=== PATIENT | female | born 1955 ===

== ENCOUNTER 2018-07-14 05:50 | Inpatient (IN) | payer MEDICAID ==
[2018-07-14 06:00] VITALS: BMI 27.4
--- NOTE | 2018-07-14 06:13 | ED PDOC ---
HPI: Altered Mental Status Time Seen by Provider: 07/14/18 05:59 Chief Complaint (Nursing): Weakness/Neurological Deficit Chief Complaint (Provider): Weakness/Neurological Deficit History Per: Family () History/Exam Limitations: Clinical Condition Onset/Duration Of Symptoms: Other (Prior to arrival) Description Of Symptoms: Unresponsive (to verbal or physical stimuli) Usual Baseline: Unknown Exacerbating Factor(s): Unknown Additional Complaint(s): 62 years old female brought in by EMS for evaluation after found her moaning rhythmically, not responsive to verbal or physical stimuli with no purposeful movement. reports he last saw patient last night and states she was fine until this morning. Patient is on medications of Baclofen, Omeprazole, Losartan/HCTZ, Gabapentin , Cyclobenzaprine, Hydrocod/APAP. PMD: None provided Past Medical History Reviewed: Historical Data, Nursing Documentation, Vital Signs Vital Signs: Last Vital Signs Temp Pulse 83 07/14/18 06:01 Resp 22 07/14/18 06:01 BP 195/105 H 07/14/18 06:01 Pulse Ox 100 07/14/18 06:01 - Medical History PMH: HTN - Family History Family History: States: Unknown Family Hx - Home Medications Home Medications: Ambulatory Orders Medication Instructions Recorded Baclofen [Lioresal] 10 mg PO BID 07/14/18 Cyclobenzaprine [Cyclobenzaprine 10 mg PO TID 07/14/18 HCl] Gabapentin [Neurontin] 300 mg PO TID 07/14/18 Hydrocodone/Acetaminophen [[place] 1 each PO BID 07/14/18 5-325 Tablet] Losartan/Hydrochlorothiazide 1 tab PO DAILY 07/14/18 [Hyzaar 25 mg-100 mg] Omeprazole Magnesium [Prilosec Otc] 40 mg PO DAILY 07/14/18 - Allergies Allergies/Adverse Reactions: Allergies Allergy/AdvReac Type Severity Reaction Status Date / Time No Known Allergies Allergy Verified 07/14/18 06:00 Review of Systems Review Of Systems: ROS cannot be obtained secondary to pt's inabilty to answer questions. Physical Exam - Reviewed Nursing Documentation Reviewed: Yes Vital Signs Reviewed: Yes - Physical Exam Eye Exam: Positive for: PERRL (Right pupils less reactive than left) Respiratory: Positive for: Other (Unable to auscultate breath sounds due to moaning.) Gastrointestinal/Abdominal: Positive for: Soft. Negative for: Tenderness (apparent on palpation) Extremity: Positive for: Other (Rigid extremities upper and lower) Neurological/Psych: Positive for: Other (Unclear baseline due to surgery) - Laboratory Results Result Diagrams: 07/14/18 06:11 07/14/18 06:11 - ECG O2 Sat by Pulse Oximetry: 100 (RA) Pulse Ox Interpretation: Normal - Critical Care Total Time (In Min): 120 Documented Critical Care: Time excludes all time spent performint seperately billable procedures Medical Decision Making Medical Decision Making: MDM: Altered mental status. Rule out stroke out of window unable to obtain NIH scale vs. drug overdose vs. other cause of AMS with underline hypertension. Time: 05 Code stroke activated. [address] Findings: There is normal configuration of sella turcica. There are no intra or extra- axial collections. There is no mass effect or midline shift. There is no evidence of hematoma formation. No hydrocephalus is present. The ventricles are symmetrical. No abnormal calcifications are present. There is diffuse age-appropriate cerebellar and cerebral atrophy with proportionally dilated ventricles and cortical sulci. There are bilateral periventricular and subcortical white matter hypolucencies compatible with mild chronic microvascular disease. Otherwise, no significant focal abnormalities are seen either in the posterior fossa or supratentorial compartment. Mild chronic mucosal inflammatory changes of the ethmoid air cells. IMPRESSION: 1. Age-appropriate cerebellar and cerebral atrophy. 2. Mild chronic microvascular disease. 3. No evidence of acute intracranial pathology. Time: 0620 Hypertension improved without intervention. Hold on hypertension treatment. NIH scale to be performed. 0623 Based on ABG, patient is in respiratory alkalosis. [address] Crawley, neurologist expansion envelope maker hand, who recommends 1000 mg of Depacon for seizure. 0753 Labs reviewed, patient with elevated LFT, normal ammonia level Discussed case with Dr. Fernandez, patient to be admitted. He is requesting ICU consult. At this time, patient with stable airway, gag reflex intact. Discussed plan with family, who is agreeable. [address] Norwood, core maker expansion envelope maker hand and accepts patient for ICU. Scribe Attestation: Documented by Karis Maher, acting as a scribe for Jaylyn Mills MD. Provider Scribe Attestation: All medical record entries made by the Scribe were at my direction and personally dictated by me. I have reviewed the chart and agree that the record accurately reflects my personal performance of the history, physical exam, medical decision making, and the department course for this patient. I have also personally directed, reviewed, and agree with the discharge instructions and disposition. Disposition - Clinical Impression Clinical Impression: Seizure, Altered mental status - Patient ED Disposition Is Patient to be Admitted: Yes - Disposition Disposition Time: 07:55 Condition: CRITICAL
[2018-07-14 06:16] LABS: ABG ALLEN TEST YES; ARTERIAL BLOOD GAS HCO3 30.6 mmol/L (21-28); ARTERIAL BLOOD GAS O2 SAT 99.9 % (95-98); ARTERIAL BLOOD GAS PCO2 34 mm/Hg (35-45); ARTERIAL BLOOD GAS PH 7.55 (7.35-7.45); ARTERIAL BLOOD GAS PO2 89 mm/Hg (80-100); ARTERIAL BLOOD GAS TCO2 30.7 mmol/L (22-28)
[2018-07-14 06:24] LABS: BASO # 0.1 K/uL (0.0-0.2); BASO % 0.8 % (0.0-2.0); EOS # 0.2 K/uL (0.0-0.7); EOS % 1.9 % (0.0-4.0); HEMOGLOBIN 14.8 g/dL (12.0-16.0); LYMPH # 4.1 K/uL (1.0-4.3); LYMPH % 47.5 % (20.0-40.0); MEAN CELL VOLUME 91.9 fl (81.0-99.0); MEAN CORPUSCULAR HEMOGLOBIN 31.3 pg (27.0-31.0); MEAN CORPUSCULAR HGB CONC 34.1 g/dL (33.0-37.0); MEAN PLATELET VOLUME 9.2 fl (7.2-11.7); MONO # 1.1 K/uL (0.0-0.8); MONO % 12.6 % (0.0-10.0); NEUT # 3.2 K/uL (1.8-7.0); NEUT % 37.2 % (50.0-75.0); NRBC % 0.1 % (0.0-0.0); RBC 4.71 Mil/uL (3.80-5.20); RED CELL DISTRIBUTION WIDTH 15.2 % (11.5-14.5); WHITE BLOOD COUNT 8.7 K/uL (4.8-10.8)
[2018-07-14] MEDS ORDERED: Valproate 1,000 MG in Sodium Chloride 0.9% 100 ML IVPB STA (06:24)
[2018-07-14 06:28] LABS: INR 0.9; PROTHROMBIN TIME 10.7 Seconds (9.8-13.1)
[2018-07-14 06:31] LABS: PARTIAL THROMBOPLASTIN TIME 38.7 Seconds (25.6-37.1)
[2018-07-14 06:32] LABS: ACETAMINOPHEN < 10.0 ug/ml (10.0-30.0); SALICYLATE < 1.0 mg/dl
[2018-07-14 06:35] LABS: ALB/GLOB RATIO 1.4 (1.0-2.1); ALBUMIN 4.5 g/dL (3.5-5.0); ALT/SGPT 128 U/L (9-52); AST/SGOT 45 U/L (14-36); BLOOD UREA NITROGEN 17 mg/dl (7-17); CALCIUM 10.1 mg/dL (8.4-10.2); GFR NON-AFRICAN AMERICAN > 60; LIPASE 284 U/L (23-300)
[2018-07-14 06:45] LABS: B-TYPE NATRIURETIC PEPTIDE 153 pg/ml (0-900)
[2018-07-14 08:12] LABS: SQUAMOUS EPITHIAL < 1 /hpf (0-5); URINE BILIRUBIN NEGATIVE (NEGATIVE); URINE BLOOD NEGATIVE (NEGATIVE); URINE CLARITY SLIGHTY-CLOUDY (Clear); URINE COLOR YELLOW (YELLOW); URINE GLUCOSE (UA) NEG (NEGATIVE); URINE LEUKOCYTE ESTERASE NEG Leu/uL (Negative); URINE PROTEIN NEGATIVE (NEGATIVE); URINE UROBILINOGEN 0.2-1.0 mg/dL (0.2-1.0)
--- NOTE | 2018-07-14 08:26 | CT ---
Date of service: 07/14/2018 PROCEDURE: CT HEAD WITHOUT CONTRAST. HISTORY: AMS COMPARISON: None available. TECHNIQUE: Axial computed tomography images were obtained through the head/brain without intravenous contrast. Radiation dose: Total exam DLP = 893.35 mGy-cm. This CT exam was performed using one or more of the following dose reduction techniques: Automated exposure control, adjustment of the mA and/or kV according to patient size, and/or use of iterative reconstruction technique. FINDINGS: HEMORRHAGE: No parenchymal subarachnoid hemorrhage. BRAIN: Minor chronic periventricular white matter ischemic changes present.. Additionally, there may also be a few tiny chronic bilateral basal nuclei lacunar type infarcts Mild generalized volume Minor vascular calcifications both carotid siphons. VENTRICLES: No obstructive hydrocephalus. CALVARIUM: Unremarkable. PARANASAL SINUSES: Minimal mucosal thickening seen within a few ethmoid air cells MASTOID AIR CELLS: Unremarkable as visualized. No inflammatory changes. OTHER FINDINGS: Changes of cataract surgery. IMPRESSION: No acute intracranial hemorrhage. Minor chronic periventricular white matter ischemic changes present.. Additionally, there may also be a few tiny chronic bilateral basal nuclei lacunar type infarcts Mild generalized volume
[2018-07-14 08:28] LABS: OPIATES, UR NEGATIVE (NEGATIVE)
[2018-07-14 08:34] LABS: BARBITURATES, UR NEGATIVE (NEGATIVE); BENZODIAZEPINES, UR POSITIVE (NEGATIVE); PHENCYCLIDINE, UR NEGATIVE (NEGATIVE)
[2018-07-14] MEDS ORDERED: EnalaprilAT 1.25 mg/ml Inj IVP SCH (10:30)
[2018-07-14] MEDS ORDERED: Potassium Ch 20mEq in D5-1/2NS 1,000 ML IV SCH (11:15)
[2018-07-14] MEDS ORDERED: Nicardipine HCl 40 MG/200 ML 40 MG/200 ML SOL IV SCH (11:15)
--- NOTE | 2018-07-14 12:39 | PN ---
DATE: 07/14/2018 LOCATION: ICU bed 434. TIME SPENT: 45 minutes. The patient is seen, evaluated at the bedside. Discussed with family members at bedside. Events in the ER noted and discussed with the ER. A 62-year-old female with history significant for anxiety, depression, status post injury to back from a fall from past years ago, on Xanax, clonazepam, doxepin, baclofen, omeprazole, losartan with hydrochlorothiazide, gabapentin, cyclobenzaprine and hydrocodone. The patient moved recently from [place] to her son's house in [place]. The patient was reportedly at her baseline, able to communicate with family and able to walk around. This morning, the patient was noted to be moaning by son and not responding appropriately. She was brought to the emergency room. In ER, the patient's vital signs showed temperature of 98.7, heart rate 83 regular, respiratory rate 22, blood pressure 195/105, pulse oximetry 100%. Examination was significant for pupils equal, round, reactive to light. Right pupil less reactive than left, limited movements of the upper and lower extremities. CT of head obtained, showed mild chronic mucosal inflammatory change ethmoid air cells, no significant focal abnormalities in the posterior fossa or supratentorial compartment, bilateral periventricular and subcortical white matter hyperlucency compatible with chronic microvascular disease. The patient's consult was obtained from Neurology, recommended to give Keppra given suspected postictal state. The patient is subsequently admitted to ICU for further evaluation. On further review noted to have the patient's missing hydrocodone from her container that was filled on 06/20/2018. Also reportedly taking Xanax, clonazepam and doxepin which are also not seen in the medications at the bedside. PAST MEDICAL HISTORY: Significant for hypertension. ALLERGIES: NONE DOCUMENTED. FAMILY HISTORY: Noncontributory. SOCIAL HISTORY: Nonsmoker, non-ETOH, no recreational drug use. PHYSICAL EXAMINATION: GENERAL: A middle-aged female, looks older than her stated age, alert and awake. Eyes are open, able to answer questions to her family members but not clear due to lack of dentition. VITAL SIGNS: Temperature 97.6, heart rate 54, blood pressure 149/88 and 210/88, saturation 100% on room air, respiratory rate 19, thoracoabdominal. HEAD, EYES, EARS, NOSE AND THROAT: Pupils 2 to 3 mm, reactive. Conjunctivae pink. Sclerae are white. NECK: Supple. Trachea central. CHEST: Bilateral breath sounds diminished in intensity, clear to auscultation anteriorly and laterally. HEART: Rhythm regular. S1, S2, normal intensity. No S3 or gallop. No audible murmur. ABDOMEN: Bowel sounds are present. Soft. Liver and spleen not palpable. Bladder not distended. EXTREMITIES: No clubbing, cyanosis or edema. NEUROLOGIC: Alert, awake, eyes open. Limited movements on upper and lower extremities. Plantarflexion. No cranial nerve deficit. Deep tendon reflexes 2+ bilaterally. MEDICATIONS: Her current medications include status post valproate 1 g IV, diltiazem 25 mg and enalapril 2.5 mg IV every 12 hours. LABORATORY DATA: WBC 8.7, hemoglobin 14.8, hematocrit 43.3, platelet count of 339. PT 10.7, INR 0.9, PTT 38.7. ABG, pH of 7.5, pCO2 of 34, pO2 of 89, saturation 99.9 on FIO2 of 21%, consistent with mild metabolic alkalosis. SMA-7: Sodium 141, potassium 3.4, chloride 101, CO2 of 31, blood urea nitrogen 17, creatinine 0.9, random glucose 116, calcium 10.1, phosphorus 2.4, magnesium 2.3, total bilirubin 0.5, AST 45, ALT 128, alkaline phosphatase 291, ammonia less than 9. Troponin is less than 0.012. ProBNP 153. Total protein 7.8, albumin 4.5, lipase 284. Urinalysis negative. Urine toxic screen, Tylenol level less than 1, acetaminophen less than 10. Urine positive for benzodiazepine. IMPRESSION: Neurologic: Altered mental status, toxic encephalopathy, probably due to incidental overdose of oxycodone and/or other medications including Xanax and clonazepam. Possible seizure with postictal state, seen by Neurology consult, status post dose of Keppra, aspirin 81 mg daily. Followup MRI of brain. Pulmonary: Mild metabolic encephalopathy, saturating well over 94%. No distress noted. Adequate respiratory effort. Cardiac: Hypertension, history of hypertension in the past. We will continue with enalapril IV. If not controlled, initiate nicardipine drip. Maintain systolic pressure between 140 to 160. Gastrointestinal: Abnormal LFT, likely toxic, rule out other hepatic etiology like hepatitis B, C and/or due to the side effect from the medications. Renal: No acute issues noted. Endocrinology: Blood sugar 116. Continue IV hydration with D5 half normal with potassium supplement at 75 ml/hour. Infectious Disease No acute issues noted. Keep head of bed 30 degrees up, close monitoring of intake and output. Continue DVT prophylaxis with Lovenox 40 mg subcu daily. Stevan Norwood MD
--- NOTE | 2018-07-14 14:49 | RAD ---
Date of service: 07/14/2018 HISTORY: Possible admission COMPARISON: No prior. TECHNIQUE: 1 view obtained. FINDINGS: LUNGS: No active pulmonary disease. PLEURA: No significant pleural effusion identified, no pneumothorax apparent. CARDIOVASCULAR: Questionable minor aortic atherosclerotic calcification present. Heart size is borderline enlarged.. No pulmonary vascular congestion. OSSEOUS STRUCTURES: No significant abnormalities. VISUALIZED UPPER ABDOMEN: Normal. OTHER FINDINGS: None. IMPRESSION: No active disease.
[2018-07-14] MEDS: Thiamine 100 mg/ml Inj IM SCH (16:08)
[2018-07-14] MEDS ORDERED: Dextrose 5%/0.45% NS 1,000 ML IV SCH (19:00)
--- NOTE | 2018-07-14 19:09 | CP.PCM.HP ---
History of Present Illness - History of Present Illness History of Present Illness: 62 yo female with history of chronic pain and HTN bought in by son to ER after she was found moaning by her son and not responsive to verbal or physical stimuli. Son said she was fine last night. Present on Admission - Present on Admission Any Indicators Present on Admission: No History of DVT/PE: No History of Uncontrolled Diabetes: No Urinary Catheter: No Decubitus Ulcer Present: No Review of Systems - Review of Systems All systems: reviewed and no additional remarkable complaints except (aside from those mentioned above, 12 point system review were negative by me) Past Patient History - Tetanus Immunizations Tetanus Immunization: Unknown - Past Medical History & Family History Past Medical History?: Yes - Past Social History Smoking Status: Former Smoker Chewing Tobacco Use: No Cigar Use: No Alcohol: None Drugs: Denies Home Situation {Lives}: Other (with son and son's girlfriend) - CARDIAC Hx Cardiac Disorders: Yes - PULMONARY Hx Respiratory Disorders: Yes - NEUROLOGICAL Hx Neurological Disorder: No - HEENT Hx HEENT Problems: No - RENAL Hx Chronic Kidney Disease: No - ENDOCRINE/METABOLIC Hx Endocrine Disorders: Yes - HEMATOLOGICAL/ONCOLOGICAL Hx Blood Disorders: No - INTEGUMENTARY Hx Dermatological Problems: No - MUSCULOSKELETAL/RHEUMATOLOGICAL Hx Falls: Yes - GASTROINTESTINAL Hx Gastrointestinal Disorders: No - GENITOURINARY/GYNECOLOGICAL Hx Genitourinary Disorders: No - PSYCHIATRIC Hx Substance Use: No - SURGICAL HISTORY Hx Surgeries: Yes Hx Gastric Bypass Surgery: Yes Other/Comment: Tummy tuck - ANESTHESIA Hx Anesthesia Reactions: No Hx Malignant Hyperthermia: No Meds Allergies/Adverse Reactions: Allergies Allergy/AdvReac Type Severity Reaction Status Date / Time No Known Allergies Allergy Verified 07/14/18 06:00 Physical Exam - Constitutional Appears: No Acute Distress - Head Exam Head Exam: ATRAUMATIC - Eye Exam Eye Exam: EOMI, PERRL. absent: Scleral icterus - ENT Exam ENT Exam: Mucous Membranes Moist - Neck Exam Neck exam: Negative for: Meningismus - Respiratory Exam Respiratory Exam: absent: Rales, Rhonchi, Wheezes, Respiratory Distress - Cardiovascular Exam Cardiovascular Exam: Bradycardia - GI/Abdominal Exam GI & Abdominal Exam: Soft. absent: Tenderness - Rectal Exam Rectal Exam: Deferred - Extremities Exam Extremities exam: Negative for: pedal edema - Neurological Exam Neurological exam: Alert (able to follow command and answered correctly but slurred), Motor Sensory Deficit (unable to lift all limbs) - Psychiatric Exam Psychiatric exam: Normal Affect - Skin Skin Exam: Dry, Intact Results - Vital Signs Recent Vital Signs: Last Vital Signs Temp 98.2 F 07/14/18 16:00 Pulse 51 L 07/14/18 18:00 Resp 20 07/14/18 18:00 BP 141/76 07/14/18 18:00 Pulse Ox 100 07/14/18 18:00 - Labs Result Diagrams: 07/14/18 06:11 07/14/18 06:11 Labs: Laboratory Results - last 24 hr 07/14/18 07/14/18 07/14/18 05:57 06:11 06:11 WBC RBC Hgb Hct MCV MCH MCHC RDW Plt Count MPV Neut % (Auto) Lymph % (Auto) Mclean % (Auto) Eos % (Auto) Baso % (Auto) Neut # (Auto) Lymph # (Auto) Mclean # (Auto) Eos # (Auto) Baso # (Auto) PT INR APTT pCO2 pO2 HCO3 ABG pH ABG Total CO2 ABG O2 Saturation ABG Base Excess Jama Test ABG Potassium A-a O2 Difference Glucose Lactate FiO2 Sodium 141 Potassium 3.4 L Chloride 101 Carbon Dioxide 31 H Anion Gap 12 BUN 17 Creatinine 0.9 Est GFR ( Amer) > 60 Est GFR (Non-Af Amer) > 60 POC Glucose (mg/dL) 116 H Random Glucose 111 H Calcium 10.1 Phosphorus 2.4 L Magnesium 2.3 Total Bilirubin 0.5 AST 45 H ALT 128 H Alkaline Phosphatase 291 H Ammonia Troponin I < 0.0120 NT-Pro-B Natriuret Pep 153 Total Protein 7.8 Albumin 4.5 Globulin 3.3 Albumin/Globulin Ratio 1.4 Lipase 284 TSH 3rd Generation Arterial Blood Potassium Urine Color Urine Clarity Urine pH Ur Specific [place] Urine Protein Urine Glucose (UA) Urine Ketones Urine Blood Urine Nitrate Urine Bilirubin Urine Urobilinogen Ur Leukocyte Esterase Urine RBC (Auto) Urine Microscopic WBC Ur Squamous Epith Cells Salicylates < 1.0 Urine Opiates Screen Urine Methadone Screen Acetaminophen < 10.0 L Ur Barbiturates Screen Ur Phencyclidine Scrn Ur Amphetamines Screen U Benzodiazepines Scrn U Oth Cocaine Metabols U Cannabinoids Screen Alcohol, Quantitative < 10 Blood Type Blood Type Confirm Antibody Screen BBK History Checked 07/14/18 07/14/1807/14/19 06:11 06:11 06:11 WBC 8.7 RBC 4.71 Hgb 14.8 Hct 43.3 MCV 91.9 MCH 31.3 H MCHC 34.1 RDW 15.2 H Plt Count 339 MPV 9.2 Neut % (Auto) 37.2 L Lymph % (Auto) 47.5 H Mclean % (Auto) 12.6 H Eos % (Auto) 1.9 Baso % (Auto) 0.8 Neut # (Auto) 3.2 Lymph # (Auto) 4.1 Mclean # (Auto) 1.1 H Eos # (Auto) 0.2 Baso # (Auto) 0.1 PT 10.7 INR 0.9 APTT 38.7 H pCO2 pO2 HCO3 ABG pH ABG Total CO2 ABG O2 Saturation ABG Base Excess Jama Test ABG Potassium A-a O2 Difference Glucose Lactate FiO2 Sodium Potassium Chloride Carbon Dioxide Anion Gap BUN Creatinine Est GFR ( Amer) Est GFR (Non-Af Amer) POC Glucose (mg/dL) Random Glucose Calcium Phosphorus Magnesium Total Bilirubin AST ALT Alkaline Phosphatase Ammonia Troponin I NT-Pro-B Natriuret Pep Total Protein Albumin Globulin Albumin/Globulin Ratio Lipase TSH 3rd Generation Arterial Blood Potassium Urine Color Urine Clarity Urine pH Ur Specific [place] Urine Protein Urine Glucose (UA) Urine Ketones Urine Blood Urine Nitrate Urine Bilirubin Urine Urobilinogen Ur Leukocyte Esterase Urine RBC (Auto) Urine Microscopic WBC Ur Squamous Epith Cells Salicylates Urine Opiates Screen Urine Methadone Screen Acetaminophen Ur Barbiturates Screen Ur Phencyclidine Scrn Ur Amphetamines Screen U Benzodiazepines Scrn U Oth Cocaine Metabols U Cannabinoids Screen Alcohol, Quantitative Blood Type O POSITIVE Blood Type Confirm Antibody Screen Negative BBK History Checked No verified bt 07/14/18 07/14/18 07/14/18 06:13 06:56 07:40 WBC RBC Hgb Hct MCV MCH MCHC RDW Plt Count MPV Neut % (Auto) Lymph % (Auto) Mclean % (Auto) Eos % (Auto) Baso % (Auto) Neut # (Auto) Lymph # (Auto) Mclean # (Auto) Eos # (Auto) Baso # (Auto) PT INR APTT pCO2 34 L pO2 89 HCO3 30.6 H ABG pH 7.55 H ABG Total CO2 30.7 H ABG O2 Saturation 99.9 H ABG Base Excess 7.3 H Jama Test Yes ABG Potassium 3.1 L A-a O2 Difference 18.0 Glucose 118 H Lactate 1.1 FiO2 21.0 Sodium 140.0 Potassium Chloride 104.0 Carbon Dioxide Anion Gap BUN Creatinine Est GFR ( Amer) Est GFR (Non-Af Amer) POC Glucose (mg/dL) Random Glucose Calcium Phosphorus Magnesium Total Bilirubin AST ALT Alkaline Phosphatase Ammonia < 9 L Troponin I NT-Pro-B Natriuret Pep Total Protein Albumin Globulin Albumin/Globulin Ratio Lipase TSH 3rd Generation Arterial Blood Potassium 3.1 L Urine Color Urine Clarity Urine pH Ur Specific [place] Urine Protein Urine Glucose (UA) Urine Ketones Urine Blood Urine Nitrate Urine Bilirubin Urine Urobilinogen Ur Leukocyte Esterase Urine RBC (Auto) Urine Microscopic WBC Ur Squamous Epith Cells Salicylates Urine Opiates Screen Negative Urine Methadone Screen Negative Acetaminophen Ur Barbiturates Screen Negative Ur Phencyclidine Scrn Negative Ur Amphetamines Screen Negative U Benzodiazepines Scrn Positive U Oth Cocaine Metabols Negative U Cannabinoids Screen Negative Alcohol, Quantitative Blood Type Blood Type Confirm Antibody Screen BBK History Checked 07/14/18 07/14/18 07/14/18 07:40 11:10 12:17 WBC RBC Hgb Hct MCV MCH MCHC RDW Plt Count MPV Neut % (Auto) Lymph % (Auto) Mclean % (Auto) Eos % (Auto) Baso % (Auto) Neut # (Auto) Lymph # (Auto) Mclean # (Auto) Eos # (Auto) Baso # (Auto) PT INR APTT pCO2 pO2 HCO3 ABG pH ABG Total CO2 ABG O2 Saturation ABG Base Excess Jama Test ABG Potassium A-a O2 Difference Glucose Lactate FiO2 Sodium Potassium Chloride Carbon Dioxide Anion Gap BUN Creatinine Est GFR ( Amer) Est GFR (Non-Af Amer) POC Glucose (mg/dL) Random Glucose Calcium Phosphorus Magnesium Total Bilirubin AST ALT Alkaline Phosphatase Ammonia Troponin I NT-Pro-B Natriuret Pep Total Protein Albumin Globulin Albumin/Globulin Ratio Lipase TSH 3rd Generation 0.31 L Arterial Blood Potassium Urine Color Yellow Urine Clarity Slighty-cloudy Urine pH 7.0 Ur Specific [place] 1.008 Urine Protein Negative Urine Glucose (UA) Neg Urine Ketones Negative Urine Blood Negative Urine Nitrate Negative Urine Bilirubin Negative Urine Urobilinogen 0.2-1.0 Ur Leukocyte Esterase Neg Urine RBC (Auto) 1 Urine Microscopic WBC < 1 Ur Squamous Epith Cells < 1 Salicylates Urine Opiates Screen Urine Methadone Screen Acetaminophen Ur Barbiturates Screen Ur Phencyclidine Scrn Ur Amphetamines Screen U Benzodiazepines Scrn U Oth Cocaine Metabols U Cannabinoids Screen Alcohol, Quantitative Blood Type Blood Type Confirm O POSITIVE Antibody Screen BBK History Checked Assessment & Plan - Assessment and Plan (Free Text) Assessment: 62 yo female with history of chronic pain and HTN bought in by son to ER after she was found moaning by her son and not responsive to verbal or physical stimuli. Son said she was fine last night. 1. AMS R/O CVA R/O Metabolic Encephalopathy or Drug Intoxication neuro consult with Dr Crawley MRI of the head maintain NPO as patient failed swallow evaluation patient mentation improved and able to answer correctly but with slurred speech 2. HTN patient received Cardizem in the ER and was given IV Vasotec followed with Cardene drip all above medications stopped with patient SBP going down to 90s and HR in the 50s continue monitoring BP 3. Chronic Pain will hold pain medication for the meantime consider painter ski edge 4. DVT prophylaxis venodyne boots while in bed
[2018-07-14] MEDS: Potassium Ch 20mEq in D5-1/2NS 1,000 ML IV SCH (21:10)
[2018-07-15] MEDS ORDERED: Sodium Chloride 0.9% 1,000 ML IV SCH (00:15)
[2018-07-15] MEDS ORDERED: Naloxone 0.4 mg/ml Inj (Adult) IVP STA (00:21)
[2018-07-15] MEDS ORDERED: Flumazenil 0.1 mg/ml Inj (5ml) IVP ONE (00:33)
[2018-07-15 05:17] LABS: BASO % 0.4 % (0.0-2.0); EOS # 0.2 K/uL (0.0-0.7); HEMOGLOBIN 13.4 g/dL (12.0-16.0); LYMPH # 3.5 K/uL (1.0-4.3); LYMPH % 46.7 % (20.0-40.0); MEAN CELL VOLUME 93.6 fl (81.0-99.0); MEAN CORPUSCULAR HEMOGLOBIN 31.2 pg (27.0-31.0); MEAN CORPUSCULAR HGB CONC 33.4 g/dL (33.0-37.0); MONO # 0.9 K/uL (0.0-0.8); MONO % 11.8 % (0.0-10.0); NEUT # 2.9 K/uL (1.8-7.0); NEUT % 39.1 % (50.0-75.0); RBC 4.29 Mil/uL (3.80-5.20); RED CELL DISTRIBUTION WIDTH 15.4 % (11.5-14.5); WHITE BLOOD COUNT 7.4 K/uL (4.8-10.8)
[2018-07-15 05:31] LABS: ALB/GLOB RATIO 1.3 (1.0-2.1); ALBUMIN 3.5 g/dL (3.5-5.0); ALT/SGPT 85 U/L (9-52); AST/SGOT 40 U/L (14-36); BLOOD UREA NITROGEN 14 mg/dl (7-17); CALCIUM 8.7 mg/dL (8.4-10.2); GFR NON-AFRICAN AMERICAN > 60
[2018-07-15] MEDS: Potassium Ch 20mEq in D5-1/2NS 1,000 ML IV SCH (06:06)
[2018-07-15] MEDS: Thiamine 100 mg/ml Inj IM SCH (09:14)
--- NOTE | 2018-07-15 12:33 | CT ---
Date of service: 07/15/2018 PROCEDURE: CT HEAD WITHOUT CONTRAST. HISTORY: Rule out stroke COMPARISON: Comparison made CT scan of the brain dated 07/14/2018. TECHNIQUE: Axial computed tomography images were obtained through the head/brain without intravenous contrast. Radiation dose: Total exam DLP = 972.59 mGy-cm. This CT exam was performed using one or more of the following dose reduction techniques: Automated exposure control, adjustment of the mA and/or kV according to patient size, and/or use of iterative reconstruction technique. FINDINGS: HEMORRHAGE: No acute parenchymal, subarachnoid or extra-axial hemorrhage. BRAIN: Suspect minimal chronic periventricular white matter ischemic changes. There may also be a few tiny scattered chronic bilateral basal nuclei lacunar type infarcts. Note that possibility of a small acute infarct cannot be excluded on this exam. Mild generalized volume loss Minor vascular calcifications both carotid siphons and vertebral arteries. VENTRICLES: No obstructive hydrocephalus CALVARIUM: Calvarium intact. PARANASAL SINUSES: Unremarkable as visualized. No significant inflammatory changes. MASTOID AIR CELLS: Unremarkable as visualized. No inflammatory changes. OTHER FINDINGS: Changes of bilateral cataract surgery again noted. IMPRESSION: There are no acute intracranial hemorrhages. Suspect minimal chronic periventricular white matter ischemic changes. Note that the possibility of a small acute infarct not excluded. Mild generalized volume loss.
--- NOTE | 2018-07-15 13:07 | CP.PCM.PN ---
Subjective - Date & Time of Evaluation Date of Evaluation: 07/15/18 Time of Evaluation: 10:00 - Subjective Subjective: Patient seen and examined. Admitted in a slurred speech that she felt fine although still with weakness on all limbs. Objective - Vital Signs/Intake and Output Vital Signs (last 24 hours): Temp Pulse Resp BP Pulse Ox 98.6 F 55 L 14 175/85 H 99 07/15/18 12:00 07/15/18 12:42 07/15/18 12:00 07/15/18 12:42 07/15/18 12:00 Intake and Output: 07/15/18 07/15/18 06:59 18:59 Intake Total 2104 1000 Output Total 450 700 Balance 1654 300 - Medications Medications: Current Medications Amlodipine Besylate (Norvasc) 5 mg PO DAILY [facility] Last Admin: 07/15/18 12:42 Dose: 5 mg Aspirin (Aspirin Chewable) 81 mg PO DAILY [facility] Last Admin: 07/15/18 10:04 Dose: 81 mg Sodium Chloride (Sodium Chloride 0.9%) 1,000 mls @ 1,000 mls/hr IV .Q1H [facility] Stop: 07/16/18 00:04 Last Admin: 07/15/18 00:22 Dose: 1,000 mls/hr Pantoprazole Sodium (Protonix Inj) 40 mg IVP DAILY [facility] Last Admin: 07/15/18 09:14 Dose: 40 mg Thiamine HCl (Vitamin B1 Inj) 100 mg IM DAILY [facility] Last Admin: 07/15/18 09:14 Dose: 100 mg - Labs Labs: 07/15/18 04:37 07/15/18 04:37 PT 10.7 Seconds (9.8-13.1) 07/14/18 06:11 INR 0.9 07/14/18 06:11 APTT 38.7 Seconds (25.6-37.1) H 07/14/18 06:11 - Constitutional Appears: No Acute Distress - Head Exam Head Exam: ATRAUMATIC - Eye Exam Eye Exam: absent: Scleral icterus - ENT Exam ENT Exam: Mucous Membranes Moist - Neck Exam Neck Exam: absent: Lymphadenopathy - Respiratory Exam Respiratory Exam: absent: Rales, Rhonchi, Wheezes, Respiratory Distress - Cardiovascular Exam Cardiovascular Exam: Bradycardia - GI/Abdominal Exam GI & Abdominal Exam: Soft. absent: Tenderness - Rectal Exam Rectal Exam: Deferred - Neurological Exam Neurological Exam: Alert (verbally responsive although with slurring) - Psychiatric Exam Psychiatric exam: Normal Affect - Skin Skin Exam: Dry, Intact Assessment and Plan - Assessment and Plan (Free Text) Assessment: 62 yo female with history of chronic pain and HTN bought in by son to ER after she was found moaning by her son and not responsive to verbal or physical stimuli. Son said she was fine last night. 1. AMS verbally responsive with generalized weakness passed swallow evaluation MRI of the head in am rpt CT scan of Head: can not exclude small infarct 2. HTN BP uncontrolled increase Amlodipine to 10mg PO daily 3. Chronic Pain back pain bearable without medication 4. DVT prophylaxis venodyne boots while in bed
--- NOTE | 2018-07-15 23:12 | PN ---
DATE: 07/15/2018 LOCATION: The patient in ICU, bed 435. TIME SPENT: 35 minutes. The patient is seen, evaluated at the bedside. Discussed with family members at bedside. SUBJECTIVE: A 62-year-old female, history significant for anxiety, depression, status post injury to back from a fall in the past, on Xanax, clonazepam, doxepin, baclofen, omeprazole, losartan with hydrochlorothiazide, gabapentin, cyclobenzaprine and hydrocodone, admitted after being found mumbling at home and with change in the mental status. Initial CT head showed subacute lacunar infarct, seen by Neurology, on recommended aspirin. Overnight given and Narcan for bradycardia. This morning, alert and awake, follows commands appropriate, respiratory distress noted. Affect, mood is flat but able to comprehend, seen by speech and swallow evaluation, able to swallow without signs or symptoms of aspiration, started on finely chopped diet with thin liquid. PHYSICAL EXAMINATION: VITAL SIGNS: Temperature 98.9, heart rate 55 to 62, blood pressure of 146/70 to 155/80. Oxygen saturation 100% on room air, respiratory rate 12. Intake 2381, output 1650, positive balance 731. Weight 168 pounds. HEAD, EYES, EARS, NOSE AND THROAT: Pupils are reactive. Conjunctivae pink. Sclerae are white. NECK: Supple. Trachea is central. CHEST: Bilateral breath sounds, clear to auscultation. HEART: Rhythm regular. S1, S2 normal intensity. No S3, S4 gallop. No audible murmur. ABDOMEN: Bowel sounds are present. Soft. Liver and spleen not palpable. Bladder not distended. NEUROLOGIC: Alert and awake, oriented to name, place and time. No cranial nerve deficit except subtle left questionable facial droop. Motor examination unremarkable. Sensory examination remarkable. Plantarflexor. Deep tendon reflex 2+ bilaterally. MEDICATIONS: Aspirin 81 mg daily, Protonix 40 IV daily, sodium chloride at 100 mL per hour, thiamine 100 mg IM daily. LABORATORY DATA: WBC 7.4, hemoglobin 13.4, hematocrit 40.2, platelet count of 268, neutrophils 39.1, lymphocytes 46.7, monocytes 11.8. PT 10.7, INR 0.9, PTT 38.7. SMA-7: Sodium 141, potassium 3.6, chloride 107, CO2 of 28, blood urea nitrogen 40, creatinine of 0.6, random glucose 104, calcium 8.7, total bilirubin 0.6, AST 85, alkaline phosphatase 180, total protein 6.2, albumin 3.5, triglycerides 117, cholesterol 155, LDL 93, HDL 33, T4 of 9.21, TSH 0.31. Microbiology, none reported. Repeat CT head from this morning pending. CT on admission showed minor chronic periventricular white matter ischemic changes plus a few tiny chronic bilateral basal nuclei lacunar-type infarct. IMPRESSION: Neurologic: Admitted with altered mental status, possibly toxic encephalopathy, incidental overdose of oxycodone suspected as tablets missing in the container, also due to other medications including Xanax and clonazepam. Possible seizure with postictal state, no further seizure noted, seen by Neurology consult, status post dose of Keppra, follow up Neurology whether to continue Keppra or not. Continue aspirin [address] scan to be done this morning and MRI as recommended by Neurology later on. Pulmonary: Mild metabolic alkalosis saturating well over 94%. No distress noted. Adequate respiratory effort. Cardiac: Hypertension, on losartan. As the patient is able to swallow, we will resume losartan with hydrochlorothiazide. Gastrointestinal: Abnormal LFT, numbers are trending down. Follow up serology titers. Renal No acute issues. Endocrinology: Blood sugar 116. Continue IV hydration. Follow TSH and free T4 level. Infectious Disease: No acute issues. Continue DVT prophylaxis. Stevan Norwood MD
[2018-07-16 05:32] LABS: HEMOGLOBIN 13.9 g/dL (12.0-16.0); MEAN CELL VOLUME 92.2 fl (81.0-99.0); MEAN CORPUSCULAR HEMOGLOBIN 30.5 pg (27.0-31.0); MEAN CORPUSCULAR HGB CONC 33.1 g/dL (33.0-37.0); RBC 4.55 Mil/uL (3.80-5.20); RED CELL DISTRIBUTION WIDTH 14.9 % (11.5-14.5); WHITE BLOOD COUNT 7.5 K/uL (4.8-10.8)
[2018-07-16 05:35] LABS: ALB/GLOB RATIO 1.3 (1.0-2.1); ALBUMIN 3.9 g/dL (3.5-5.0); ALT/SGPT 79 U/L (9-52); AST/SGOT 33 U/L (14-36); BLOOD UREA NITROGEN 7 mg/dl (7-17); CALCIUM 9.3 mg/dL (8.4-10.2); GFR NON-AFRICAN AMERICAN > 60
[2018-07-16] MEDS ORDERED: Potassium Chloride 20 mEq ER Tab PO ONE (06:53)
[2018-07-16] MEDS ORDERED: Potassium Chloride 20 mEq 100 ML IVPB SCH (08:00)
[2018-07-16 08:22] LABS: HEPATITIS B SURFACE AG Negative (NEGATIVE)
[2018-07-16 08:39] LABS: HEPATITIS C ANTIBODY NEGATIVE (NEGATIVE)
--- NOTE | 2018-07-16 08:49 | CP.PCM.PN ---
<GeovanyBianca - Last Filed: 07/16/18 11:23> Subjective - Date & Time of Evaluation Date of Evaluation: 07/16/18 Time of Evaluation: 08:49 - Subjective Subjective: Patient seen and examined at bedside. Reports significant improve. Oriented to person, place and time. Reports she does not remember what happened prior to her arrival to [facility]. Reports that she does not want her daughter in law to know anything about her and her medical treatment in the hospital. Only her Son is allowed to know. Denies chest pain, shortness of breath, nausea, vomiting, abdominal pain. Objective - Vital Signs/Intake and Output Vital Signs (last 24 hours): Temp Pulse Resp BP Pulse Ox 98.8 F 65 18 150/79 97 07/16/18 08:02 07/16/18 08:02 07/16/18 08:02 07/16/18 08:02 07/16/18 08:02 - Medications Medications: Current Medications Amlodipine Besylate (Norvasc) 10 mg PO DAILY [facility] Aspirin (Aspirin Chewable) 81 mg PO DAILY [facility] Last Admin: 07/15/18 10:04 Dose: 81 mg Atorvastatin Calcium (Lipitor) 40 mg PO DAILY [facility] Baclofen (Lioresal) 10 mg PO DAILY [facility] Last Admin: 07/15/18 16:49 Dose: 10 mg Enoxaparin Sodium (Lovenox) 40 mg SC DAILY [facility]; Protocol Gabapentin (Neurontin) 100 mg PO TID [facility] Last Admin: 07/15/18 16:50 Dose: 100 mg Ketorolac Tromethamine (Toradol) 15 mg IVP ONCE ONE Stop: 07/16/18 09:01 Lidocaine (Lidoderm) 1 ea TD DAILY [facility] Pantoprazole Sodium (Protonix Inj) 40 mg IVP DAILY [facility] Last Admin: 07/15/18 09:14 Dose: 40 mg Thiamine HCl (Vitamin B1 Inj) 100 mg IM DAILY [facility] Last Admin: 07/15/18 09:14 Dose: 100 mg - Labs Labs: 07/16/18 04:35 07/16/18 04:35 PT 10.7 Seconds (9.8-13.1) 07/14/18 06:11 INR 0.9 07/14/18 06:11 APTT 38.7 Seconds (25.6-37.1) H 07/14/18 06:11 - Constitutional Appears: Non-toxic, No Acute Distress, Older Than Stated Age, Chronically Ill - Eye Exam Eye Exam: Normal appearance - ENT Exam ENT Exam: Mucous Membranes Moist - Respiratory Exam Respiratory Exam: Clear to Ausculation Bilateral, NORMAL BREATHING PATTERN. absent: Accessory Muscle Use, Chest Wall Tenderness, Decreased Breath Sounds, Prolonged Expiratory Phase, Rales, Rhonchi, Wheezes, Respiratory Distress, Stridor - Cardiovascular Exam Cardiovascular Exam: +S1, +S2 - GI/Abdominal Exam GI & Abdominal Exam: Soft, Normal Bowel Sounds. absent: Distended, Firm, Guarding, Rigid, Tenderness, Rebound - Extremities Exam Extremities Exam: Full ROM, Normal Capillary Refill, Normal Inspection. absent: Calf Tenderness, Joint Swelling, Pedal Edema, Tenderness - Neurological Exam Neurological Exam: Alert, Awake, Oriented x3 - Psychiatric Exam Psychiatric exam: Normal Affect, Normal Mood - Skin Skin Exam: Dry, Intact, Normal Color, Warm Assessment and Plan - Assessment and Plan (Free Text) Assessment: 62 yo female with history of chronic pain and HTN bought in by son to ER after she was found moaning by her son and not responsive to verbal or physical stimuli. Currently, alert and oriented x3. No slurred speech (resolved as compared to when she first came in). Plan: 1. AMS verbally responsive Alert and oriented to person, place and time. with generalized weakness passed swallow evaluation MRI of the head - pending read rpt CT scan of Head: can not exclude small infarct Start Statin 2. HTN BP uncontrolled c/w Amlodipine to 10mg PO daily 3. Chronic Pain back pain bearable without medication -C/W current pain medications prn 4. DVT prophylaxis venodyne boots while in bed Loveadrián <Shweta Murcia - Last Filed: 07/16/18 16:50> Objective - Vital Signs/Intake and Output Vital Signs (last 24 hours): Temp Pulse Resp BP Pulse Ox 98.3 F 78 18 184/92 H 98 07/16/18 12:19 07/16/18 13:25 07/16/18 12:19 07/16/18 12:19 07/16/18 13:25 - Medications Medications: Current Medications Amlodipine Besylate (Norvasc) 10 mg PO DAILY [facility] Last Admin: 07/16/18 11:13 Dose: 10 mg Aspirin (Aspirin Chewable) 81 mg PO DAILY [facility] Last Admin: 07/16/18 11:11 Dose: 81 mg Atorvastatin Calcium (Lipitor) 40 mg PO DAILY [facility] Last Admin: 07/16/18 11:10 Dose: 40 mg Baclofen (Lioresal) 10 mg PO DAILY [facility] Last Admin: 07/16/18 11:11 Dose: 10 mg Enoxaparin Sodium (Lovenox) 40 mg SC DAILY [facility]; Protocol Last Admin: 07/16/18 11:12 Dose: 40 mg Gabapentin (Neurontin) 100 mg PO TID [facility] Last Admin: 07/16/18 14:26 Dose: Not Given Lidocaine (Lidoderm) 1 ea TD DAILY [facility] Last Admin: 07/16/18 11:09 Dose: 1 ea Pantoprazole Sodium (Protonix Inj) 40 mg IVP DAILY [facility] Last Admin: 07/16/18 11:14 Dose: 40 mg Thiamine HCl (Vitamin B1 Inj) 100 mg IM DAILY [facility] Last Admin: 07/16/18 11:15 Dose: 100 mg - Labs Labs: 07/16/18 04:35 07/16/18 04:35 PT 10.7 Seconds (9.8-13.1) 07/14/18 06:11 INR 0.9 07/14/18 06:11 APTT 38.7 Seconds (25.6-37.1) H 07/14/18 06:11 Attending/Attestation - Attestation I have personally seen and examined this patient.: Yes I have fully participated in the care of the patient.: Yes I have reviewed all pertinent clinical information, including history, physical exam and plan: Yes Notes (Text): AMS likely Toxic Metabolic Encephalopathy Acute CVA ruled out Depression/Anxiety/Adjustment Disorder Chronic Low Back Pain HTN - Pt now alert, oriented - MRI of Brain : no acute infarct - EEG pending - PT consulted- rec TCU - cont ASA, statin - cont Gabapentin, Baclofen and Lidoderm patch -Psych consulted- rec Family therapy , no meds for now
--- NOTE | 2018-07-16 09:29 | CP.PCM.CON ---
History of Present Illness - History of Present Illness History of Present Illness: Neurology consult dictated. IN brief, Miss Jones was found by to be rhythmically moaning and groaning with altered mental status. She was brought in as a code stroke and admitted to ICU but did not have any focal deficits that would warrant TPA. ON my exam today, she appears aphasic with decreased ability to follow commands. I will order MRI brain without contrast, and order aspirin. Thank you Dr. Crawley Neurology Past Patient History - Tetanus Immunizations Tetanus Immunization: Unknown - Past Medical History & Family History Past Medical History?: Yes - Past Social History Smoking Status: Former Smoker Chewing Tobacco Use: No Cigar Use: No Alcohol: None Drugs: Denies Home Situation {Lives}: Other (with son and son's girlfriend) - CARDIAC Hx Hypertension: Yes - PULMONARY Hx Respiratory Disorders: Yes - NEUROLOGICAL Hx Neurological Disorder: No - HEENT Hx HEENT Problems: No - RENAL Hx Chronic Kidney Disease: No - ENDOCRINE/METABOLIC Hx Endocrine Disorders: Yes - HEMATOLOGICAL/ONCOLOGICAL Hx Blood Disorders: No - INTEGUMENTARY Hx Dermatological Problems: No - MUSCULOSKELETAL/RHEUMATOLOGICAL Hx Falls: Yes - GASTROINTESTINAL Hx Gastrointestinal Disorders: No - GENITOURINARY/GYNECOLOGICAL Hx Genitourinary Disorders: No - PSYCHIATRIC Hx Substance Use: No - SURGICAL HISTORY Hx Surgeries: Yes Hx Gastric Bypass Surgery: Yes Other/Comment: Tummy tuck - ANESTHESIA Hx Anesthesia Reactions: No Hx Malignant Hyperthermia: No Meds Allergies/Adverse Reactions: Allergies Allergy/AdvReac Type Severity Reaction Status Date / Time No Known Allergies Allergy Verified 07/14/18 06:00 - Medications Medications: Current Medications Amlodipine Besylate (Norvasc) 10 mg PO DAILY [facility] Aspirin (Aspirin Chewable) 81 mg PO DAILY [facility] Last Admin: 07/15/18 10:04 Dose: 81 mg Atorvastatin Calcium (Lipitor) 40 mg PO DAILY [facility] Baclofen (Lioresal) 10 mg PO DAILY [facility] Last Admin: 07/15/18 16:49 Dose: 10 mg Enoxaparin Sodium (Lovenox) 40 mg SC DAILY [facility]; Protocol Gabapentin (Neurontin) 100 mg PO TID [facility] Last Admin: 07/15/18 16:50 Dose: 100 mg Lidocaine (Lidoderm) 1 ea TD DAILY [facility] Pantoprazole Sodium (Protonix Inj) 40 mg IVP DAILY [facility] Last Admin: 07/15/18 09:14 Dose: 40 mg Thiamine HCl (Vitamin B1 Inj) 100 mg IM DAILY [facility] Last Admin: 07/15/18 09:14 Dose: 100 mg Results - Vital Signs Recent Vital Signs: Last Vital Signs Temp 98.8 F 07/16/18 08:02 Pulse 65 07/16/18 08:02 Resp 18 07/16/18 08:02 BP 150/79 07/16/18 08:02 Pulse Ox 97 07/16/18 08:02 - Labs Result Diagrams: 07/16/18 04:35 07/16/18 04:35 Labs: Laboratory Results - last 24 hr 07/14/18 07/16/18 07/16/18 12:17 04:35 04:35 WBC 7.5 RBC 4.55 Hgb 13.9 Hct 41.9 MCV 92.2 MCH 30.5 MCHC 33.1 RDW 14.9 H Plt Count 308 Sodium 140 Potassium 3.3 L Chloride 102 Carbon Dioxide 29 Anion Gap 12 BUN 7 Creatinine 0.7 Est GFR ( Amer) > 60 Est GFR (Non-Af Amer) > 60 Random Glucose 95 Calcium 9.3 Total Bilirubin 0.6 AST 33 ALT 79 H Alkaline Phosphatase 199 H Total Protein 6.9 Albumin 3.9 Globulin 2.9 Albumin/Globulin Ratio 1.3 Hep Bs Antigen Negative Hepatitis C Antibody Negative
[2018-07-16] MEDS: Lidocaine 5% Patch TD SCH (11:09)
[2018-07-16] MEDS: Enoxaparin 40 mg Syringe SC SCH (11:12)
[2018-07-16] MEDS: Thiamine 100 mg/ml Inj IM SCH (11:15)
--- NOTE | 2018-07-16 11:38 | CARD ---
APPROVED REPORT Date of service: 07/14/2018 EKG Measurement Heart [id number] <Conclusion> Sinus bradycardia Otherwise normal ECG
--- NOTE | 2018-07-16 11:45 | MRI ---
Date of service: 07/16/2018 PROCEDURE: MRI BRAIN WITHOUT CONTRAST HISTORY: r/o CVA COMPARISON: None available. TECHNIQUE: Multiplanar, multisequence MR images of the brain were obtained without intravenous contrast enhancement. FINDINGS: HEMORRHAGE: None DWI: No evidence of an acute or early subacute infarction. BRAIN PARENCHYMA: Good corticomedullary differentiation is seen. Reiterated diffuse cerebral atrophy and chronic microangiopathy. No suspicious extra-axial fluid collection is identified and the midline brain anatomy appears grossly nonfocal as imaged. No mass effect identified. VENTRICLES: Unremarkable. No hydrocephalus. CRANIUM: Unremarkable. ORBITS: Grossly unremarkable. PARANASAL SINUSES/MASTOIDS: Clear VASCULAR SYSTEM: Skull base flow voids intact. OTHER FINDINGS: None. IMPRESSION: No evidence of an acute or subacute brain infarction. No mass effect or other suspicious signal change identified throughout the brain. Limited age-related neuro degenerative changes are reiterated, appearing age appropriate.
--- NOTE | 2018-07-16 12:35 | CP.PCM.PN ---
Subjective - Date & Time of Evaluation Date of Evaluation: 07/16/18 Time of Evaluation: 12:33 - Subjective Subjective: Neuro Follow Up Note: Mrs. Jones was evaluated this afternoon at bedside. She states that she is feeling better today and offers no new complaints. She is still pending an EEG to be completed. She verbalizes concerns about recently moving here from [place] and has been running out of her home medications. Per pt she suffers from anxiety and panic attacks, which she states has gotten worse due to the recent move. ROS is otherwise unremarkable today. Objective - Vital Signs/Intake and Output Vital Signs (last 24 hours): Temp Pulse Resp BP Pulse Ox 98.3 F 60 18 184/92 H 99 07/16/18 12:19 07/16/18 12:19 07/16/18 12:19 07/16/18 12:19 07/16/18 12:19 - Medications Medications: Current Medications Amlodipine Besylate (Norvasc) 10 mg PO DAILY [facility] Last Admin: 07/16/18 11:13 Dose: 10 mg Aspirin (Aspirin Chewable) 81 mg PO DAILY [facility] Last Admin: 07/16/18 11:11 Dose: 81 mg Atorvastatin Calcium (Lipitor) 40 mg PO DAILY [facility] Last Admin: 07/16/18 11:10 Dose: 40 mg Baclofen (Lioresal) 10 mg PO DAILY [facility] Last Admin: 07/16/18 11:11 Dose: 10 mg Enoxaparin Sodium (Lovenox) 40 mg SC DAILY [facility]; Protocol Last Admin: 07/16/18 11:12 Dose: 40 mg Gabapentin (Neurontin) 100 mg PO TID [facility] Last Admin: 07/16/18 11:12 Dose: 100 mg Lidocaine (Lidoderm) 1 ea TD DAILY [facility] Last Admin: 07/16/18 11:09 Dose: 1 ea Pantoprazole Sodium (Protonix Inj) 40 mg IVP DAILY [facility] Last Admin: 07/16/18 11:14 Dose: 40 mg Thiamine HCl (Vitamin B1 Inj) 100 mg IM DAILY [facility] Last Admin: 07/16/18 11:15 Dose: 100 mg - Labs Labs: 07/16/18 04:35 07/16/18 04:35 PT 10.7 Seconds (9.8-13.1) 07/14/18 06:11 INR 0.9 07/14/18 06:11 APTT 38.7 Seconds (25.6-37.1) H 07/14/18 06:11 - Constitutional Appears: Well, Non-toxic, No Acute Distress - Head Exam Head Exam: ATRAUMATIC, NORMAL INSPECTION, NORMOCEPHALIC - Eye Exam Eye Exam: EOMI, Normal appearance, PERRL. absent: Nystagmus Pupil Exam: NORMAL ACCOMODATION, PERRL - ENT Exam ENT Exam: Mucous Membranes Moist - Neck Exam Neck Exam: Full ROM, Normal Inspection - Respiratory Exam Respiratory Exam: NORMAL BREATHING PATTERN - Extremities Exam Extremities Exam: Full ROM Additional comments: has generalized weakness - Neurological Exam Neurological Exam: Alert, Awake, CN II-XII Intact, Oriented x3, Reflexes Normal Neuro motor strength exam: Left Upper Extremity: 4, Right Upper Extremity: 4, Left Lower Extremity: 4, Right Lower Extremity: 4 Additional comments: Speech clear,fluid Awake, alert; can name and recall. FROM to extremities with some generalized weakness throughout No tremors or abnormal movements noted - Psychiatric Exam Psychiatric exam: Normal Affect, Normal Mood - Skin Skin Exam: Normal Color Assessment and Plan (1) Altered mental status Assessment & Plan: Imaging reviewed: -MRI Brain (07/16/18): No evidence of an acute or subacute brain infarction. No mass effect or other suspicious signal change identified throughout the brain. Limited age-related neuro degenerative changes are reiterated, appearing age appropriate. -CT Head (repeat, 07/15/18): There are no acute intracranial hemorrhages. Suspect minimal chronic periventricular white matter ischemic changes. Note that the possibility of a small acute infarct not excluded. Mild generalized volume loss. -CT Head (07/14/18): No acute intracranial hemorrhage. Minor chronic perivent ricular white matter ischemic changes present.. Additionally, there may also be a few tiny chronic bilateral basal nuclei lacunar type infarcts. Mild generalized volume. -EEG ordered, pending to r/o seizure---will f/u with results. -Continue supportive care and treatment of underlying issues. -Recommend psych to evaluate for c/o anxiety and frequent panic attacks. -Notify neuro team of any acute changes in pt's condition. Jillian Dc, DNP, INCIDENT RESPONSE CONSULTANT d/w Dr. Pacheco Status: Acute
--- NOTE | 2018-07-16 15:22 | CP.PCM.CON ---
History of Present Illness - History of Present Illness History of Present Illness: late note for [id number] psychiatry consulted possible changes in mood, pt was admitted to [facility] from [facility] after pt was brought in by ems, ems was called by patient's family after pt was reportedly found on floor in her home. reportedly pt was moaning, making sounds. pt son (at bedside per pt authorization via nodding up and down. pt currently is experiencing expressive aphasia. is able to follow commands. son reports that pt was recently moved up to this area as where pt was reportedly living in [place] became "to noisy neighbors were banging on ceiling", etc.. reportedly this was becoming stressful for pt.. pt denies previous mental health treatment via nodding left to right. via nodding pt. expressed worry (up/down motion). tearful at times. pt denies desire to harm self or other others. pt reports right side/hand is dominant hand pt was offered paper/pencil with clip board-pt able to grasp pen in palm, appears to not have fine motor grasp to write with pen. reviewed with pt family staff may find chart with various faces to signify needs so that pt might be able to communicate. Review of Systems - Psychiatric Psychiatric: Anxiety, Difficulty Concentrating Past Patient History - Tetanus Immunizations Tetanus Immunization: Unknown - Past Medical History & Family History Past Medical History?: Yes - Past Social History Smoking Status: Former Smoker Chewing Tobacco Use: No Cigar Use: No Alcohol: None Drugs: Denies Home Situation {Lives}: Other (with son and son's girlfriend) - CARDIAC Hx Hypertension: Yes - PULMONARY Hx Respiratory Disorders: Yes - NEUROLOGICAL Hx Neurological Disorder: No - HEENT Hx HEENT Problems: No - RENAL Hx Chronic Kidney Disease: No - ENDOCRINE/METABOLIC Hx Endocrine Disorders: Yes - HEMATOLOGICAL/ONCOLOGICAL Hx Blood Disorders: No - INTEGUMENTARY Hx Dermatological Problems: No - MUSCULOSKELETAL/RHEUMATOLOGICAL Hx Falls: Yes - GASTROINTESTINAL Hx Gastrointestinal Disorders: No - GENITOURINARY/GYNECOLOGICAL Hx Genitourinary Disorders: No - PSYCHIATRIC Hx Substance Use: No - SURGICAL HISTORY Hx Surgeries: Yes Hx Gastric Bypass Surgery: Yes Other/Comment: Tummy tuck - ANESTHESIA Hx Anesthesia Reactions: No Hx Malignant Hyperthermia: No Meds Allergies/Adverse Reactions: Allergies Allergy/AdvReac Type Severity Reaction Status Date / Time No Known Allergies Allergy Verified 07/14/18 06:00 - Medications Medications: Current Medications Amlodipine Besylate (Norvasc) 10 mg PO DAILY [facility] Last Admin: 07/16/18 11:13 Dose: 10 mg Aspirin (Aspirin Chewable) 81 mg PO DAILY [facility] Last Admin: 07/16/18 11:11 Dose: 81 mg Atorvastatin Calcium (Lipitor) 40 mg PO DAILY [facility] Last Admin: 07/16/18 11:10 Dose: 40 mg Baclofen (Lioresal) 10 mg PO DAILY [facility] Last Admin: 07/16/18 11:11 Dose: 10 mg Enoxaparin Sodium (Lovenox) 40 mg SC DAILY [facility]; Protocol Last Admin: 07/16/18 11:12 Dose: 40 mg Gabapentin (Neurontin) 100 mg PO TID [facility] Last Admin: 07/16/18 14:26 Dose: Not Given Lidocaine (Lidoderm) 1 ea TD DAILY [facility] Last Admin: 07/16/18 11:09 Dose: 1 ea Pantoprazole Sodium (Protonix Inj) 40 mg IVP DAILY [facility] Last Admin: 07/16/18 11:14 Dose: 40 mg Thiamine HCl (Vitamin B1 Inj) 100 mg IM DAILY [facility] Last Admin: 07/16/18 11:15 Dose: 100 mg Physical Exam - Neurological Exam Additional comments: expressive aphasia uses nodding up and down for yes and left to right for no. appears left side might be a little weaker as compaired to right side. pt follows simple commands when spoken to in Hebrew, alert x person, place, month. Results - Vital Signs Recent Vital Signs: Last Vital Signs Temp 98.3 F 07/16/18 12:19 Pulse 60 07/16/18 12:19 Resp 18 07/16/18 12:19 BP 184/92 H 07/16/18 12:19 Pulse Ox 99 07/16/18 12:19 - Labs Result Diagrams: 07/16/18 04:35 07/16/18 04:35 Labs: Laboratory Results - last 24 hr 07/14/18 07/14/18 07/16/18 11:10 12:17 04:35 WBC 7.5 RBC 4.55 Hgb 13.9 Hct 41.9 MCV 92.2 MCH 30.5 MCHC 33.1 RDW 14.9 H Plt Count 308 Sodium Potassium Chloride Carbon Dioxide Anion Gap BUN Creatinine Est GFR ( Amer) Est GFR (Non-Af Amer) Random Glucose Calcium Total Bilirubin AST ALT Alkaline Phosphatase Total Protein Albumin Globulin Albumin/Globulin Ratio Hep Bs Antigen Negative Hep Bs Antibody Positive Hepatitis C Antibody Negative 07/16/18 04:35 WBC RBC Hgb Hct MCV MCH MCHC RDW Plt Count Sodium 140 Potassium 3.3 L Chloride 102 Carbon Dioxide 29 Anion Gap 12 BUN 7 Creatinine 0.7 Est GFR ( Amer) > 60 Est GFR (Non-Af Amer) > 60 Random Glucose 95 Calcium 9.3 Total Bilirubin 0.6 AST 33 ALT 79 H Alkaline Phosphatase 199 H Total Protein 6.9 Albumin 3.9 Globulin 2.9 Albumin/Globulin Ratio 1.3 Hep Bs Antigen Hep Bs Antibody Hepatitis C Antibody Assessment & Plan (1) Adjustment disorder Status: Acute Priority: Medium Comment: czech spoken, pt offered opportunity to attempt communication via nodding as well as attempted use of writing (pt unable to use pen), became tearful, pt to continue treatment by primary medical team to manage underlying conditions. occupational therapy might be considered possibel assessment and evaluation. physical therapy per primary team might be considered. supportive counseling offered to pt/family. family/pt may consider possible individual and family therapy. at this time psychiatric medications not indicated/pt defers need. psychiatry can be reconsulted per clinical status. 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
--- NOTE | 2018-07-16 20:17 | CARD ---
APPROVED REPORT Date of service: 07/16/2018 EXAM: Two-dimensional and M-mode echocardiogram with Doppler and color Doppler. Other Information Quality : GoodRhythm : NSR INDICATION CVA/TIA 2D DIMENSIONS IVSd0.86 (0.7-1.1cm)LVDd4.45 (3.9-5.9cm) LVOT Diameter1.95 (1.8-2.4cm)PWd1.03 (0.7-1.1cm) IVSs1.16 (0.8-1.2cm)LVDs3.31 (2.5-4.0cm) FS (%) 25.6 %PWs0.90 (0.8-1.2cm) M-Mode DIMENSIONS Left Atrium (MM)4.00 (2.5-4.0cm)IVSd0.91 (0.7-1.1cm) Aortic Root3.09 (2.2-3.7cm)LVDd5.68 (4.0-5.6cm) Aortic Cusp Exc.1.68 (1.5-2.0cm)PWd1.00 (0.7-1.1cm) IVSs1.71 cmFS (%) 62 % LVDs2.18 (2.0-3.8cm)PWs1.71 cm Aortic Valve AoV Peak Zrefadtm116.4cm/sAoV VTI27.8cmAO Peak GR.7mmHg LVOT Peak Epqethnl600.2cm/sLVOT VTI25.76cmAO Mean GR.4mmHg PHILLIP (VMAX)1.68aw1KSQ (VTI)1.49cm2 Mitral Valve MV E Ehfnugjf68.8cm/sMV DECEL [id number] A Areuqpud65.0cm/s MV NLS77dqL/A ratio0.8MVA (PHT)3.74cm2 TDI Lateral E' Peak V8.07cm/sMedial E' Peak V6.27cm/sE/Lateral E'6.8 E/Medial E'8.7 LEFT VENTRICLE The left ventricle is normal size. There is normal left ventricular wall thickness. The left ventricular systolic function is normal. The estimated ejection fraction is 55-60% No regional wall motion abnormalities noted.. Transmitral Doppler flow pattern is Grade I-abnormal relaxation pattern. No left ventricle thrombus noted on this study. There is no ventricular septal defect visualized. There is no left ventricular aneurysm. There is no mass noted in the left ventricle. RIGHT VENTRICLE The right ventricle is normal size. There is normal right ventricular wall thickness. The right ventricular systolic function is normal. ATRIA The left atrium is mildly dilated. The right atrium size is normal. The interatrial septum is intact with no evidence for an atrial septal defect. AORTIC VALVE The aortic valve is normal in structure. No aortic regurgitation is present. There is no aortic valvular stenosis. There is no aortic valvular vegetation. MITRAL VALVE The mitral valve is normal in structure. There is no evidence of mitral valve prolapse. There is no mitral valve stenosis. There is trace mitral valve regurgitation noted. TRICUSPID VALVE The tricuspid valve is normal in structure. There is no tricuspid valve regurgitation noted. There is no tricuspid valve prolapse or vegetation. There is no tricuspid valve stenosis. PULMONIC VALVE The pulmonary valve is normal in structure. There is no pulmonic valvular regurgitation. There is no pulmonic valvular stenosis. GREAT VESSELS The aortic root is normal in size. The ascending aorta is normal in size. The pulmonary artery is normal. The IVC is normal in size and collapses >50% with inspiration. PERICARDIAL EFFUSION There is no pericardial effusion. There is no pleural effusion. <Conclusion> The estimated ejection fraction is 55-60% Transmitral Doppler flow pattern is Grade I-abnormal relaxation pattern. The left atrium is mildly dilated. There is no tricuspid valve regurgitation noted. The interatrial septum appears to be intact with no evidence for an atrial septal defect based on color doppler study.
[2018-07-16 22:16] LABS: URINE AMORPHOUS SEDIMENT RARE /ul (<OCC); URINE BACTERIA MOD (<OCC); URINE BILIRUBIN NEGATIVE (NEGATIVE); URINE BLOOD MODERATE (NEGATIVE); URINE CLARITY CLOUDY (Clear); URINE COLOR YELLOW (YELLOW); URINE GLUCOSE (UA) NEG (NEGATIVE); URINE LEUKOCYTE ESTERASE TRACE Leu/uL (Negative); URINE PROTEIN NEGATIVE (NEGATIVE); URINE UROBILINOGEN 0.2-1.0 mg/dL (0.2-1.0)
[2018-07-17 05:37] LABS: HEMOGLOBIN 14.1 g/dL (12.0-16.0); MEAN CELL VOLUME 92.3 fl (81.0-99.0); MEAN CORPUSCULAR HEMOGLOBIN 31.2 pg (27.0-31.0); MEAN CORPUSCULAR HGB CONC 33.8 g/dL (33.0-37.0); RBC 4.52 Mil/uL (3.80-5.20); RED CELL DISTRIBUTION WIDTH 14.8 % (11.5-14.5)
[2018-07-17 06:05] LABS: BLOOD UREA NITROGEN 9 mg/dl (7-17); CALCIUM 9.5 mg/dL (8.4-10.2); GFR NON-AFRICAN AMERICAN > 60
[2018-07-17 08:16] VITALS: RESP 18
[2018-07-17] MEDS: Enoxaparin 40 mg Syringe SC SCH (09:34)
[2018-07-17] MEDS: Lidocaine 5% Patch TD SCH (09:35)
[2018-07-17] MEDS: Thiamine 100 mg/ml Inj IM SCH (09:37)
--- NOTE | 2018-07-17 11:00 | CP.PCM.DIS ---
<Bianca Armenta - Last Filed: 07/17/18 13:10> Provider - Provider Date of Admission: 07/14/18 07:56 Attending physician: Rigoberto Brown MD Consults: 07/14/18 06:26 Neurology Consult Stat Comment: Consulting Provider: Vipin Crawley Consulting Physician: Vipin Crawley Reason for Consult: AMS 07/14/18 07:57 Critical Care Consult Stat Comment: Consulting Provider: Stevan Norwood V Consulting Physician: Stevan Norwood V Reason for Consult: AMS, Status epilepticus 07/15/18 09:59 Physiatry Consult Routine Comment: Consulting Provider: Kareem Jimenez Consulting Physician: Kareem Jimenez Reason for Consult: depression 07/16/18 21:34 Case Management Referral Routine Comment: upon discharge Physician Instructions: Reason For Exam: pt still pending insurance ,needs medications Reason for Referral: Discharge Planning Time Spent in preparation of Discharge (in minutes): 30 Diagnosis - Discharge Diagnosis (1) Altered mental status Status: Acute Priority: Medium Comment: verbally responsive. Alert and oriented to person, place and time. with generalized weakness. passed swallow evaluation. MRI of the head - No evidence of an acute or subacute brain infarction. No mass effect or other suspicious signal change identified throughout the brain. Limited age-related neuro degenerative changes are reiterated, appearing age appropriate. rpt CT scan of Head: can not exclude small infarct. Statin and aspirin were started (2) Essential hypertension Status: Acute Comment: Controlled. Amlodipine to 10mg PO daily was continued (3) Chronic back pain Status: Chronic Hospital Course - Lab Results Lab Results: Micro Results 07/15/18 17:01 Naris MRSA Culture (Admit) - Final MRSA NOT DETECTED 07/14/18 14:39 Naris MRSA Culture (Admit) - Final MRSA NOT DETECTED Most Recent Lab Values WBC 8.0 K/uL (4.8-10.8) 07/17/18 04:30 RBC 4.52 Mil/uL (3.80-5.20) 07/17/18 04:30 Hgb 14.1 g/dL (12.0-16.0) 07/17/18 04:30 Hct 41.7 % (34.0-47.0) 07/17/18 04:30 MCV 92.3 fl (81.0-99.0) 07/17/18 04:30 MCH 31.2 pg (27.0-31.0) H 07/17/18 04:30 MCHC 33.8 g/dL (33.0-37.0) 07/17/18 04:30 RDW 14.8 % (11.5-14.5) H 07/17/18 04:30 Plt Count 312 K/uL (130-400) 07/17/18 04:30 MPV 9.0 fl (7.2-11.7) 07/15/18 04:37 Neut % (Auto) 39.1 % (50.0-75.0) L 07/15/18 04:37 Lymph % (Auto) 46.7 % (20.0-40.0) H 07/15/18 04:37 [place] % (Auto) 11.8 % (0.0-10.0) H 07/15/18 04:37 Eos % (Auto) 2.0 % (0.0-4.0) 07/15/18 04:37 Baso % (Auto) 0.4 % (0.0-2.0) 07/15/18 04:37 Neut # (Auto) 2.9 K/uL (1.8-7.0) 07/15/18 04:37 Lymph # (Auto) 3.5 K/uL (1.0-4.3) 07/15/18 04:37 [place] # (Auto) 0.9 K/uL (0.0-0.8) H 07/15/18 04:37 Eos # (Auto) 0.2 K/uL (0.0-0.7) 07/15/18 04:37 Baso # (Auto) 0.0 K/uL (0.0-0.2) 07/15/18 04:37 PT 10.7 Seconds (9.8-13.1) 07/14/18 06:11 INR 0.9 07/14/18 06:11 APTT 38.7 Seconds (25.6-37.1) H 07/14/18 06:11 pCO2 34 mm/Hg (35-45) L 07/14/18 06:13 pO2 89 mm/Hg (80-100) 07/14/18 06:13 HCO3 30.6 mmol/L (21-28) H 07/14/18 06:13 ABG pH 7.55 (7.35-7.45) H 07/14/18 06:13 ABG Total CO2 30.7 mmol/L (22-28) H 07/14/18 06:13 ABG O2 Saturation 99.9 % (95-98) H 07/14/18 06:13 ABG Base Excess 7.3 mmol/L (-2.0-3.0) H 07/14/18 06:13 Jama Test Yes 07/14/18 06:13 ABG Potassium 3.1 mmol/L (3.6-5.2) L 07/14/18 06:13 A-a O2 Difference 18.0 mm/Hg 07/14/18 06:13 Sodium 140.0 mmol/L (132-148) 07/14/18 06:13 Chloride 104.0 mmol/L (98-107) 07/14/18 06:13 Glucose 118 mg/dL (65-105) H 07/14/18 06:13 Lactate 1.1 mmol/L (0.7-2.1) 07/14/18 06:13 FiO2 21.0 % 07/14/18 06:13 Sodium 138 mmol/l (132-148) 07/17/18 04:30 Potassium 3.6 MMOL/L (3.6-5.0) 07/17/18 04:30 Chloride 102 mmol/L (98-107) 07/17/18 04:30 Carbon Dioxide 27 mmol/L (22-30) 07/17/18 04:30 Anion Gap 13 (10-20) 07/17/18 04:30 BUN 9 mg/dl (7-17) 07/17/18 04:30 Creatinine 0.7 mg/dl (0.7-1.2) 07/17/18 04:30 Est GFR ( Amer) > 60 07/17/18 04:30 Est GFR (Non-Af Amer) > 60 07/17/18 04:30 POC Glucose (mg/dL) 116 mg/dL (65-110) H 07/14/18 05:57 Random Glucose 100 mg/dL (65-105) 07/17/18 04:30 Calcium 9.5 mg/dL (8.4-10.2) 07/17/18 04:30 Phosphorus 2.4 mg/dl (2.5-4.5) L 07/14/18 06:11 Magnesium 2.3 MG/DL (1.6-2.3) 07/14/18 06:11 Total Bilirubin 0.6 mg/dl (0.2-1.3) 07/16/18 04:35 AST 33 U/L (14-36) 07/16/18 04:35 ALT 79 U/L (9-52) H 07/16/18 04:35 Alkaline Phosphatase 199 U/L (38-126) H 07/16/18 04:35 Ammonia < 9 umol/L (9-33) L 07/14/18 06:56 Troponin I < 0.0120 ng/mL (0.00-0.120) 07/14/18 06:11 NT-Pro-B Natriuret Pep 153 pg/ml (0-900) 07/14/18 06:11 Total Protein 6.9 G/DL (6.3-8.2) 07/16/18 04:35 Albumin 3.9 g/dL (3.5-5.0) 07/16/18 04:35 Globulin 2.9 gm/dL (2.2-3.9) 07/16/18 04:35 Albumin/Globulin Ratio 1.3 (1.0-2.1) 07/16/18 04:35 Triglycerides 117 mg/DL (0-149) 07/15/18 08:15 Cholesterol 155 mg/dL (0-199) 07/15/18 08:15 LDL Cholesterol Direct 93 mg/dL (0-129) 07/15/18 08:15 HDL Cholesterol 34 MG/DL (30-70) 07/15/18 08:15 Lipase 284 U/L (23-300) 07/14/18 06:11 Thyroxine (T4) 9.21 ug/dl (5.5-11.0) 07/15/18 08:15 TSH 3rd Generation 0.31 mIU/ML (0.46-4.68) L 07/14/18 11:10 Arterial Blood Potassium 3.1 mmol/L (3.6-5.2) L 07/14/18 06:13 Urine Color Yellow (YELLOW) 07/16/18 21:54 Urine Clarity Cloudy (Clear) 07/16/18 21:54 Urine pH 7.0 (5.0-8.0) 07/16/18 21:54 Ur Specific [place] 1.008 (1.003-1.030) 07/16/18 21:54 Urine Protein Negative mg/dL (NEGATIVE) 07/16/18 21:54 Urine Glucose (UA) Neg mg/dL (NEGATIVE) 07/16/18 21:54 Urine Ketones Negative mg/dL (NEGATIVE) 07/16/18 21:54 Urine Blood Moderate (NEGATIVE) 07/16/18 21:54 Urine Nitrate Negative (NEGATIVE) 07/16/18 21:54 Urine Bilirubin Negative (NEGATIVE) 07/16/18 21:54 Urine Urobilinogen 0.2-1.0 mg/dL (0.2-1.0) 07/16/18 21:54 Ur Leukocyte Esterase Trace Ash/uL (Negative) 07/16/18 21:54 Urine RBC (Auto) 25 /hpf (0-3) H 07/16/18 21:54 Urine Microscopic WBC 6 /hpf (0-5) H 07/16/18 21:54 Ur Squamous Epith Cells < 1 /hpf (0-5) 07/14/18 07:40 Amorphous Sediment Rare /ul (<OCC) H 07/16/18 21:54 Urine Bacteria Mod (<OCC) H 07/16/18 21:54 Salicylates < 1.0 mg/dl 07/14/18 06:11 Urine Opiates Screen Negative (NEGATIVE) 07/14/18 07:40 Urine Methadone Screen Negative (NEGATIVE) 07/14/18 07:40 Acetaminophen < 10.0 ug/ml (10.0-30.0) L 07/14/18 06:11 Ur Barbiturates Screen Negative (NEGATIVE) 07/14/18 07:40 Ur Phencyclidine Scrn Negative (NEGATIVE) 07/14/18 07:40 Ur Amphetamines Screen Negative (NEGATIVE) 07/14/18 07:40 U Benzodiazepines Scrn Positive (NEGATIVE) 07/14/18 07:40 U Oth Cocaine Metabols Negative (NEGATIVE) 07/14/18 07:40 U Cannabinoids Screen Negative (NEGATIVE) 07/14/18 07:40 Alcohol, Quantitative < 10 mg/dl (0-10) 07/14/18 06:11 Hep Bs Antigen Negative (NEGATIVE) 07/14/18 12:17 Hep Bs Antibody Positive (NEGATIVE) 07/14/18 11:10 Hepatitis C Antibody Negative (NEGATIVE) 07/14/18 12:17 Blood Type O POSITIVE 07/14/18 06:11 Blood Type Confirm O POSITIVE 07/14/18 12:17 Antibody Screen Negative 07/14/18 06:11 BBK History Checked No verified bt 07/14/18 06:11 - Hospital Course Hospital Course: 62 yo female with history of chronic pain and HTN was bought in by son to ER after she was found moaning by her son and not responsive to verbal or physical stimuli. Patient was initially admitted to the ICU and MRI and CT scan were performed to rule out CVA. Neurology was consulted. Patient continued to have slurred speech for a total of 1 day but resolved on the 2nd day. For HTN she recieved cardizem drip in the ER and was given IV vasotec of which were stopped when she was transferred to the floor. Once slurred speech resolved patient was transferred to telemetry. EEG was performed and pending results. Patient was se en by Kareem Jimenez as she was reporting feeling down. Patient was offered to make an appointment with [facility] once she received her [place] medicaid (She moved from [place] recently). She was given information for [facility] as it is a walk in center and no need for insurance or appointment. -MRI Brain (07/16/18): No evidence of an acute or subacute brain infarction. No mass effect or other suspicious signal change identified throughout the brain. Limited age-related neuro degenerative changes are reiterated, appearing age appropriate. -CT Head (repeat, 07/15/18): There are no acute intracranial hemorrhages. Suspect minimal chronic periventricular white matter ischemic changes. Note that the possibility of a small acute infarct not excluded. Mild generalized volume loss. -CT Head (07/14/18): No acute intracranial hemorrhage. Minor chronic periventricular white matter ischemic changes present.. Additionally, there may also be a few tiny chronic bilateral basal nuclei lacunar type infarcts. Mild generalized volume. Discharge Exam - Head Exam Head Exam: ATRAUMATIC, NORMAL INSPECTION, NORMOCEPHALIC - Eye Exam Eye Exam: Normal appearance - ENT Exam ENT Exam: Mucous Membranes Moist - Respiratory Exam Respiratory Exam: Clear to PA & Lateral, NORMAL BREATHING PATTERN, UNREMARKABLE. absent: Accessory Muscle Use, Chest Wall Tenderness, Decreased Breath Sounds, Prolonged Expiratory Phase, Rales, Rhonchi, Wheezes, Respiratory Distress, Stridor - Cardiovascular Exam Cardiovascular Exam: +S1, +S2 - GI/Abdominal Exam GI & Abdominal Exam: Normal Bowel Sounds, Soft, Unremarkable. absent: Diminished Bowel Sounds, Distended, Firm, Guarding, Hernia, Rebound, Rigid, Tenderness - Extremities Exam Extremities exam: normal capillary refill, normal inspection, pedal pulses present - Neurological Exam Neurological exam: Alert, Oriented x3 - Psychiatric Exam Psychiatric exam: Normal Affect Additional comments: Denies SI/HI - Skin Skin Exam: Dry, Intact, Normal Color, Warm Discharge Plan - Discharge Medications Prescriptions: RX: Aspirin [Low Dose Aspirin EC] 81 mg PO DAILY #30 tab RX: Atorvastatin [Lipitor] 10 mg PO DIN #30 tab - Follow Up Plan Condition: GOOD Disposition: HOME/ ROUTINE Patient education suggested?: Yes Instructions: Adjustment Disorder, Seizures, Adult (DC), Altered Mental Status (DC) Additional Instructions: F/U with [facility] august 01 3:40pm Information for [facility] given to patient at this time Home PT services Referrals: [facility] [Outside] Kareem Jimenez APN [Staff Provider] - Vipin Crawley MD [Medical Doctor] - <Shweta Murcia - Last Filed: 07/17/18 16:34> Provider - Provider Date of Admission: 07/14/18 07:56 Attending physician: Rigoberto Brown MD Consults: 07/14/18 06:26 Neurology Consult Stat Comment: Consulting Provider: Vipin Crawley Consulting Physician: Vipin Crawley Reason for Consult: AMS 07/14/18 07:57 Critical Care Consult Stat Comment: Consulting Provider: Stevan Norwood V Consulting Physician: Stevan Norwood V Reason for Consult: AMS, Status epilepticus 07/15/18 09:59 Physiatry Consult Routine Comment: Consulting Provider: Kareem Jimenez Consulting Physician: Kareem Jimenez Reason for Consult: depression 07/16/18 21:34 Case Management Referral Routine Comment: upon discharge Physician Instructions: Reason For Exam: pt still pending insurance ,needs medications Reason for Referral: Discharge Planning Hospital Course - Lab Results Lab Results: Micro Results 07/15/18 17:01 Naris MRSA Culture (Admit) - Final MRSA NOT DETECTED 07/14/18 14:39 Naris MRSA Culture (Admit) - Final MRSA NOT DETECTED Most Recent Lab Values WBC 8.0 K/uL (4.8-10.8) 07/17/18 04:30 RBC 4.52 Mil/uL (3.80-5.20) 07/17/18 04:30 Hgb 14.1 g/dL (12.0-16.0) 07/17/18 04:30 Hct 41.7 % (34.0-47.0) 07/17/18 04:30 MCV 92.3 fl (81.0-99.0) 07/17/18 04:30 MCH 31.2 pg (27.0-31.0) H 07/17/18 04:30 MCHC 33.8 g/dL (33.0-37.0) 07/17/18 04:30 RDW 14.8 % (11.5-14.5) H 07/17/18 04:30 Plt Count 312 K/uL (130-400) 07/17/18 04:30 MPV 9.0 fl (7.2-11.7) 07/15/18 04:37 Neut % (Auto) 39.1 % (50.0-75.0) L 07/15/18 04:37 Lymph % (Auto) 46.7 % (20.0-40.0) H 07/15/18 04:37 [place] % (Auto) 11.8 % (0.0-10.0) H 07/15/18 04:37 Eos % (Auto) 2.0 % (0.0-4.0) 07/15/18 04:37 Baso % (Auto) 0.4 % (0.0-2.0) 07/15/18 04:37 Neut # (Auto) 2.9 K/uL (1.8-7.0) 07/15/18 04:37 Lymph # (Auto) 3.5 K/uL (1.0-4.3) 07/15/18 04:37 [place] # (Auto) 0.9 K/uL (0.0-0.8) H 07/15/18 04:37 Eos # (Auto) 0.2 K/uL (0.0-0.7) 07/15/18 04:37 Baso # (Auto) 0.0 K/uL (0.0-0.2) 07/15/18 04:37 PT 10.7 Seconds (9.8-13.1) 07/14/18 06:11 INR 0.9 07/14/18 06:11 APTT 38.7 Seconds (25.6-37.1) H 07/14/18 06:11 pCO2 34 mm/Hg (35-45) L 07/14/18 06:13 pO2 89 mm/Hg (80-100) 07/14/18 06:13 HCO3 30.6 mmol/L (21-28) H 07/14/18 06:13 ABG pH 7.55 (7.35-7.45) H 07/14/18 06:13 ABG Total CO2 30.7 mmol/L (22-28) H 07/14/18 06:13 ABG O2 Saturation 99.9 % (95-98) H 07/14/18 06:13 ABG Base Excess 7.3 mmol/L (-2.0-3.0) H 07/14/18 06:13 Jama Test Yes 07/14/18 06:13 ABG Potassium 3.1 mmol/L (3.6-5.2) L 07/14/18 06:13 A-a O2 Difference 18.0 mm/Hg 07/14/18 06:13 Sodium 140.0 mmol/L (132-148) 07/14/18 06:13 Chloride 104.0 mmol/L (98-107) 07/14/18 06:13 Glucose 118 mg/dL (65-105) H 07/14/18 06:13 Lactate 1.1 mmol/L (0.7-2.1) 07/14/18 06:13 FiO2 21.0 % 07/14/18 06:13 Sodium 138 mmol/l (132-148) 07/17/18 04:30 Potassium 3.6 MMOL/L (3.6-5.0) 07/17/18 04:30 Chloride 102 mmol/L (98-107) 07/17/18 04:30 Carbon Dioxide 27 mmol/L (22-30) 07/17/18 04:30 Anion Gap 13 (10-20) 07/17/18 04:30 BUN 9 mg/dl (7-17) 07/17/18 04:30 Creatinine 0.7 mg/dl (0.7-1.2) 07/17/18 04:30 Est GFR ( Amer) > 60 07/17/18 04:30 Est GFR (Non-Af Amer) > 60 07/17/18 04:30 POC Glucose (mg/dL) 116 mg/dL (65-110) H 07/14/18 05:57 Random Glucose 100 mg/dL (65-105) 07/17/18 04:30 Calcium 9.5 mg/dL (8.4-10.2) 07/17/18 04:30 Phosphorus 2.4 mg/dl (2.5-4.5) L 07/14/18 06:11 Magnesium 2.3 MG/DL (1.6-2.3) 07/14/18 06:11 Total Bilirubin 0.6 mg/dl (0.2-1.3) 07/16/18 04:35 AST 33 U/L (14-36) 07/16/18 04:35 ALT 79 U/L (9-52) H 07/16/18 04:35 Alkaline Phosphatase 199 U/L (38-126) H 07/16/18 04:35 Ammonia < 9 umol/L (9-33) L 07/14/18 06:56 Troponin I < 0.0120 ng/mL (0.00-0.120) 07/14/18 06:11 NT-Pro-B Natriuret Pep 153 pg/ml (0-900) 07/14/18 06:11 Total Protein 6.9 G/DL (6.3-8.2) 07/16/18 04:35 Albumin 3.9 g/dL (3.5-5.0) 07/16/18 04:35 Globulin 2.9 gm/dL (2.2-3.9) 07/16/18 04:35 Albumin/Globulin Ratio 1.3 (1.0-2.1) 07/16/18 04:35 Triglycerides 117 mg/DL (0-149) 07/15/18 08:15 Cholesterol 155 mg/dL (0-199) 07/15/18 08:15 LDL Cholesterol Direct 93 mg/dL (0-129) 07/15/18 08:15 HDL Cholesterol 34 MG/DL (30-70) 07/15/18 08:15 Lipase 284 U/L (23-300) 07/14/18 06:11 Thyroxine (T4) 9.21 ug/dl (5.5-11.0) 07/15/18 08:15 TSH 3rd Generation 0.31 mIU/ML (0.46-4.68) L 07/14/18 11:10 Arterial Blood Potassium 3.1 mmol/L (3.6-5.2) L 07/14/18 06:13 Urine Color Yellow (YELLOW) 07/16/18 21:54 Urine Clarity Cloudy (Clear) 07/16/18 21:54 Urine pH 7.0 (5.0-8.0) 07/16/18 21:54 Ur Specific [place] 1.008 (1.003-1.030) 07/16/18 21:54 Urine Protein Negative mg/dL (NEGATIVE) 07/16/18 21:54 Urine Glucose (UA) Neg mg/dL (NEGATIVE) 07/16/18 21:54 Urine Ketones Negative mg/dL (NEGATIVE) 07/16/18 21:54 Urine Blood Moderate (NEGATIVE) 07/16/18 21:54 Urine Nitrate Negative (NEGATIVE) 07/16/18 21:54 Urine Bilirubin Negative (NEGATIVE) 07/16/18 21:54 Urine Urobilinogen 0.2-1.0 mg/dL (0.2-1.0) 07/16/18 21:54 Ur Leukocyte Esterase Trace Ash/uL (Negative) 07/16/18 21:54 Urine RBC (Auto) 25 /hpf (0-3) H 07/16/18 21:54 Urine Microscopic WBC 6 /hpf (0-5) H 07/16/18 21:54 Ur Squamous Epith Cells < 1 /hpf (0-5) 07/14/18 07:40 Amorphous Sediment Rare /ul (<OCC) H 07/16/18 21:54 Urine Bacteria Mod (<OCC) H 07/16/18 21:54 Salicylates < 1.0 mg/dl 07/14/18 06:11 Urine Opiates Screen Negative (NEGATIVE) 07/14/18 07:40 Urine Methadone Screen Negative (NEGATIVE) 07/14/18 07:40 Acetaminophen < 10.0 ug/ml (10.0-30.0) L 07/14/18 06:11 Ur Barbiturates Screen Negative (NEGATIVE) 07/14/18 07:40 Ur Phencyclidine Scrn Negative (NEGATIVE) 07/14/18 07:40 Ur Amphetamines Screen Negative (NEGATIVE) 07/14/18 07:40 U Benzodiazepines Scrn Positive (NEGATIVE) 07/14/18 07:40 U Oth Cocaine Metabols Negative (NEGATIVE) 07/14/18 07:40 U Cannabinoids Screen Negative (NEGATIVE) 07/14/18 07:40 Alcohol, Quantitative < 10 mg/dl (0-10) 07/14/18 06:11 Hep Bs Antigen Negative (NEGATIVE) 07/14/18 12:17 Hep Bs Antibody Positive (NEGATIVE) 07/14/18 11:10 Hepatitis C Antibody Negative (NEGATIVE) 07/14/18 12:17 Blood Type O POSITIVE 07/14/18 06:11 Blood Type Confirm O POSITIVE 07/14/18 12:17 Antibody Screen Negative 07/14/18 06:11 BBK History Checked No verified bt 07/14/18 06:11 Attending/Attestation - Attestation I have personally seen and examined this patient.: Yes I have fully participated in the care of the patient.: Yes I have reviewed all pertinent clinical information, including history, physical exam and plan: Yes Notes (Text): AMS likely Toxic Metabolic Encephalopathy Acute CVA ruled out Depression/Anxiety/Adjustment Disorder Chronic Low Back Pain HTN - Pt now alert, oriented x3 , no FND - MRI of Brain : no acute infarct - Trop, Ammonia level normal -Neuro consulted - PT consulted- rec TCU however pt's insurance not active - will arrange for Home/OutpT PT - cont ASA, statin - cont Gabapentin, Baclofen and Lidoderm patch -Psych consulted- rec Family therapy , and to ff up at [facility] -pt was told to walk in this week , Pysch rec to cont home Psych med- Ambien, Doxepine( lower dose) and Klonopin - Rx for walker, bath chair given - cont Norvasc for HTN
--- NOTE | 2018-07-17 11:18 | CP.PCM.PN ---
Subjective - Date & Time of Evaluation Date of Evaluation: 07/17/18 Time of Evaluation: 11:16 - Subjective Subjective: Neuro Follow Up Note: Mrs. Jones was evaluated this morning at bedside. She feels better today and is good spirits. She has been ambulating more since yesterday. She is still c concerned about her anxiety and panic attacks, however, she has a supportive family and has been encouraged to follow up with the clinic and psych. She cur rently denies h/a, dizziness, visual changes, chest pain, palpitations, sob, cough, abd pain, n/v/d, fever/chills, paresthesias. Objective - Vital Signs/Intake and Output Vital Signs (last 24 hours): Temp Pulse Resp BP Pulse Ox 98.2 F 73 18 147/88 100 07/17/18 08:16 07/17/18 09:35 07/17/18 08:16 07/17/18 09:35 07/17/18 08:16 - Medications Medications: Current Medications Amlodipine Besylate (Norvasc) 10 mg PO DAILY [facility] Last Admin: 07/17/18 09:35 Dose: 10 mg Aspirin (Aspirin Chewable) 81 mg PO DAILY [facility] Last Admin: 07/17/18 09:35 Dose: 81 mg Atorvastatin Calcium (Lipitor) 40 mg PO DAILY [facility] Last Admin: 07/17/18 09:36 Dose: 40 mg Baclofen (Lioresal) 10 mg PO DAILY [facility] Last Admin: 07/17/18 09:35 Dose: 10 mg Enoxaparin Sodium (Lovenox) 40 mg SC DAILY [facility]; Protocol Last Admin: 07/17/18 09:34 Dose: 40 mg Gabapentin (Neurontin) 100 mg PO TID [facility] Last Admin: 07/17/18 09:36 Dose: 100 mg Lidocaine (Lidoderm) 1 ea TD DAILY [facility] Last Admin: 07/17/18 09:35 Dose: 1 ea Pantoprazole Sodium (Protonix Inj) 40 mg IVP DAILY [facility] Last Admin: 07/17/18 09:36 Dose: 40 mg Thiamine HCl (Vitamin B1 Inj) 100 mg IM DAILY [facility] Last Admin: 07/17/18 09:37 Dose: 100 mg - Labs Labs: 07/17/18 04:30 07/17/18 04:30 PT 10.7 Seconds (9.8-13.1) 07/14/18 06:11 INR 0.9 07/14/18 06:11 APTT 38.7 Seconds (25.6-37.1) H 07/14/18 06:11 - Constitutional Appears: Well, Non-toxic, No Acute Distress - Head Exam Head Exam: ATRAUMATIC, NORMAL INSPECTION, NORMOCEPHALIC - Eye Exam Eye Exam: EOMI, Normal appearance, PERRL Pupil Exam: NORMAL ACCOMODATION, PERRL - ENT Exam ENT Exam: Mucous Membranes Moist - Neck Exam Neck Exam: Full ROM, Normal Inspection - Respiratory Exam Respiratory Exam: NORMAL BREATHING PATTERN - Extremities Exam Extremities Exam: Full ROM, Normal Inspection. absent: Calf Tenderness, Pedal Edema Additional comments: some generalized weakness - Neurological Exam Neurological Exam: Alert, Awake, CN II-XII Intact, Oriented x3, Reflexes Normal Neuro motor strength exam: Left Upper Extremity: 4, Right Upper Extremity: 4, Left Lower Extremity: 4, Right Lower Extremity: 4 Additional comments: Speech clear,fluid. FROM to extremities with some generalized weakness. No tremors or abnormal movements noted. - Psychiatric Exam Psychiatric exam: Normal Affect, Normal Mood - Skin Skin Exam: Normal Color Assessment and Plan (1) Altered mental status Assessment & Plan: Imaging reviewed: -MRI Brain (07/16/18): No evidence of an acute or subacute brain infarction. No mass effect or other suspicious signal change identified throughout the brain. Limited age-related neuro degenerative changes are reiterated, appearing age appropriate. -CT Head (repeat, 07/15/18): There are no acute intracranial hemorrhages. Suspect minimal chronic periventricular white matter ischemic changes. Note that the possibility of a small acute infarct not excluded. Mild generalized volume loss. -CT Head (07/14/18): No acute intracranial hemorrhage. Minor chronic periventricular white matter ischemic changes present.. Additionally, there may also be a few tiny chronic bilateral basal nuclei lacunar type infarcts. Mild generalized volume. -EEG completed, results pending---if normal, pt can be cleared from neuro standpoint for d/c home without AE. She can f/u with neuro as outpatient. -Continue supportive care and treatment of underlying issues. -Psych on case. -Notify neuro team of any acute changes in pt's condition. Jillian Dc, JUAN A, SLEEV[employer]ESSER OPERATOR d/w Dr. Pacheco Status: Acute
[2018-07-17 12:24] VITALS: BP 150/97; PULSE 79; TEMP 99.9; O2SAT 99
--- NOTE | 2018-07-18 10:13 | PCM.EEG ---
Electroencephalogram Report - Electroencephalogram Report Procedure Date: 07/16/18 Medication: Amlodipine, ASA, Gabapentin Interpretation: Technical Information: This was a 16 -channel EEG, 1-channel EKG routine EEG performed using an [employer] machine. Electrodes were applied using the 10/20 international placement system. Start; 15;20 End; 16;10 Total 50 minutes. Clinical Information: seizures During resting wakefulness there was a symmetric posterior dominant rhythm at 8.5-9.5 Hz, 30-50 uV, which was reactive to eye opening and closing. Drowsiness (15;43) was associated with fragmentation of the posterior dominant rhythm and with slow roving eye movements. Light sleep was not recorded . ] Hyperventilation was performed and there were no changes on the record. Photic stimulation was performed and there were no changes on the record. Focal abnormality; none ECG was associated with a normal sinus rhythm. Impression: This is a normal awake and drowsy electroencephalogram.
--- NOTE | 2018-07-20 07:30 | PQF ---
PROVIDER RESPONSE TEXT: Clinically unable to determine REVIEWER QUERY TEXT: Documentation Clarification Physician?s Documentation Request This Form is Not a Permanent Document in the Medical Record Pt Name: ALINA LAWSON MR #: [id number] Payor: MEDICAID HMO Unit/Bed: [id number].TEL-[id number] Adm Date: 07/14/2018 7:56:00 AM Reviewer: Lucie Phan Ext. Query Date: 07/18/2018 9:35:18 AM Documentation Clarification [id number] By submitting this query, we are merely seeking further clarification of documentation to accurately reflect all conditions that you are monitoring, evaluating, treating or that extend the hospitalizati on or utilize additional resources of care. Please utilize your independent clinical judgment when ad dressing the question(s) below. Dear Doctor Shweta Murcia, The patient?s Clinical Indicators include: 07/[address] Norwood documented "toxic encephalopathy, incidental overdose of oxycodone suspected." Your help is requested in clarifying the following clinical documentation, if you can please further specify in the medical record and discharge summary if pt had an overdose or adverse reaction. PLEASE DOCUMENT ANY ADDITIONAL DIAGNOSES AND/OR SPECIFICITY IN THE PROGRESS NOTES AND/OR DISCHARGE LOVE[facility]. Clinically unable to determine/unknown Disagree with the above request Need to discuss Query created by: Lucie Phan on 07/18/2018 9:35 AM Electronically signed by: Shweta Murcia MD 07/20/2018 7:27 AM
== END 2018-07-17 14:49 | disposition home or self-care (01) | DRG 34 ==
LOC: H.ER 05:50 → H.ERHOLD 07:56 → H.ICU/CCU 09:16 → H.TEL 07-15 16:14
DX: G92 Toxic encephalopathy (principal); E87.3 Alkalosis; F06.30 Mood disorder due to known physiological condition, unspecified; R47.01 Aphasia; G89.29 Other chronic pain; I10 Essential (primary) hypertension; Z98.84 Bariatric surgery status; Z87.891 Personal history of nicotine dependence; I69.398 Other sequelae of cerebral infarction; R94.5 Abnormal results of liver function studies; R53.1 Weakness; F32.9 Major depressive disorder, single episode, unspecified; F43.23 Adjustment disorder with mixed anxiety and depressed mood; R00.1 Bradycardia, unspecified

== ENCOUNTER 2018-08-08 18:45 | Observation (INO) | payer MEDICAID ==
[2018-08-08 18:46] VITALS: BMI 27.4
[2018-08-08 20:17] LABS: BASO % 0.5 % (0.0-2.0); EOS # 0.2 K/uL (0.0-0.7); EOS % 2.2 % (0.0-4.0); HEMOGLOBIN 13.2 g/dL (12.0-16.0); LYMPH % 34.8 % (20.0-40.0); MEAN CELL VOLUME 93.5 fl (81.0-99.0); MEAN CORPUSCULAR HGB CONC 34.2 g/dL (33.0-37.0); MEAN PLATELET VOLUME 8.3 fl (7.2-11.7); MONO # 0.7 K/uL (0.0-0.8); NEUT # 4.6 K/uL (1.8-7.0); NEUT % 54.5 % (50.0-75.0); NRBC % 0.1 % (0.0-0.0); RBC 4.11 Mil/uL (3.80-5.20); RED CELL DISTRIBUTION WIDTH 13.8 % (11.5-14.5); WHITE BLOOD COUNT 8.5 K/uL (4.8-10.8)
[2018-08-08 20:36] LABS: BLOOD UREA NITROGEN 16 mg/dl (7-17); CALCIUM 9.4 mg/dL (8.4-10.2); GFR NON-AFRICAN AMERICAN > 60
--- NOTE | 2018-08-08 21:17 | ED PDOC ---
HPI: Chest Pain Time Seen by Provider: 08/08/18 19:11 Chief Complaint (Nursing): Chest Pain Chief Complaint (Provider): Chest Pain History Per: Patient History/Exam Limitations: no limitations Onset/Duration Of Symptoms: Days (x 1) Current Symptoms Are (Timing): Still Present Quality: "Pain" Modifying Factors: None Exacerbating Factors: None Additional Complaint(s): 62 year old female with a history of CVA, HTN, asthma and COPD presents to the ED for evaluation of mid-sternal chest pain, onset this morning at 11:30. Patient initially ignored the pain until an hour prior to arrival when she went to the clinic and was sent here for evaluation. Pain was constant throughout the day and non-radiating. Patient reports a heart condition. However, she is unclear about the actual name as she was not going adequate information. Patient recently moved from [place] and has been unable to follow up with a primary doctor. Denies shortness of breath, arm pain, leg swelling and headache. PMD: none Past Medical History Reviewed: Historical Data, Nursing Documentation, Vital Signs Vital Signs: Last Vital Signs Temp 98.4 F 08/08/18 18:52 Pulse 61 08/08/18 18:52 Resp 18 08/08/18 18:52 BP 143/71 08/08/18 18:52 Pulse Ox 100 08/08/18 18:52 Primary Care Provider: Non [facility] Provider, - Medical History PMH: Anxiety, COPD, Depression, HTN Denies: Chronic Kidney Disease - Surgical History Surgical History: Cholecystectomy Other surgeries: gastric bypass - Family History Family History: States: Unknown Family Hx - Home Medications Home Medications: Ambulatory Orders Medication Instructions Recorded Acetaminophen [Acetaminophen Extra 1,000 mg PO PRN PRN 08/08/18 Strength] Albuterol Sulfate [Proair 90 mcg IH Q4 PRN 08/08/18 Respiclick] Clonazepam [Klonopin] 1 mg PO TID 08/08/18 Cyclobenzaprine [Cyclobenzaprine 10 mg PO HS 08/08/18 HCl] Doxepin HCl 300 mg PO HS 08/08/18 Ferrous Fumarate [Ferrocite] 324 mg PO DAILY 08/08/18 Fluticasone Furoate [Arnuity 100 mcg IH DAILY 08/08/18 Ellipta] Gabapentin [Neurontin] 300 mg PO TID 08/08/18 Linaclotide [Linzess] 290 mcg PO DAILY 08/08/18 Losartan/Hydrochlorothiazide 1 tab PO DAILY 08/08/18 [Losartan-Hctz 100-25 mg Tab] Montelukast [Singulair] 10 mg PO DAILY 08/08/18 Nadolol [Corgard] 40 mg PO DAILY 08/08/18 Topiramate [Topamax] 25 mg PO DAILY 08/08/18 Zolpidem [Ambien] 10 mg PO HS 08/08/18 - Allergies Allergies/Adverse Reactions: Allergies Allergy/AdvReac Type Severity Reaction Status Date / Time No Known Allergies Allergy Verified 07/14/18 06:00 Review of Systems ROS Statement: Except As Marked, All Systems Reviewed And Found Negative Cardiovascular: Positive for: Chest Pain Respiratory: Negative for: Cough, Shortness of Breath Musculoskeletal: Negative for: Arm Pain, Leg Pain Physical Exam - Reviewed Nursing Documentation Reviewed: Yes Vital Signs Reviewed: Yes - Physical Exam Appears: Positive for: Non-toxic, No Acute Distress Head Exam: Positive for: ATRAUMATIC, NORMAL INSPECTION, NORMOCEPHALIC Skin: Positive for: Normal Color, Warm, Dry Eye Exam: Positive for: EOMI, Normal appearance, PERRL Neck: Positive for: Normal, Painless ROM, Supple Cardiovascular/Chest: Positive for: Regular Rate, Rhythm. Negative for: Murmur Respiratory: Positive for: Normal Breath Sounds. Negative for: Respiratory Distress Gastrointestinal/Abdominal: Positive for: Normal Exam, Soft. Negative for: Tenderness Back: Positive for: Normal Inspection. Negative for: L CVA Tenderness, R CVA Tenderness Extremity: Positive for: Normal ROM. Negative for: Deformity Neurological/Psych: Positive for: Awake, Alert, Normal Tone, Oriented (x 3), Cerebellar Tests (normal), Motor/Sensory Deficits, worm sorter II-XII (intact). Negative for: Facial Droop - Laboratory Results Result Diagrams: 08/08/18 20:07 08/08/18 20:07 Lab Results: D-Dimer, Quantitative 226 ng/mlDDU (0-230) 08/08/18 20:07 Troponin I < 0.0120 ng/mL (0.00-0.120) 08/08/18 20:07 - ECG O2 Sat by Pulse Oximetry: 100 (RA) Pulse Ox Interpretation: Normal Medical Decision Making Medical Decision Makin:30 Impression: chest pain Differential diagnoses include but are not limited to: ACS, PE, less likely thoracic or aortic dissection Initial Plan: --EKG --BMP --CBC --Troponin --D Dimer --CXR --Aspirin 325 mg PO --NG 0.4 mg SL Scribe Attestation: Documented by Jayshree Cantrell, acting as a scribe for Raphael Vidal MD. Provider Scribe Attestation: All medical record entries made by the Scribe were at my direction and personally dictated by me. I have reviewed the chart and agree that the record accurately reflects my personal performance of the history, physical exam, medical decision making, and the department course for this patient. I have also personally directed, reviewed, and agree with the discharge instructions and disposition. Disposition - Disposition
--- NOTE | 2018-08-08 22:00 | CP.PCM.HP ---
History of Present Illness - History of Present Illness History of Present Illness: CC: chest pain HPI: 62 YO Female with PMHx of HTN, TIA, COPD, asthma, anxiety presents to the ED for chest pain. Patient states that her chest pain started around 10:30 this morning while she was spraying her clothes. The chest pain is described as dull, pressure like in the middle of her chest, no radiation of the pain to the arms, back or jaw or down to the abdomen. No recent hx of trauma and patient states that when she presses in the middle of her chest, she can feel the pain more intensely. Chest pain persists, about a 5-6/10. Patient states that the pain persisted throughout the day, she had an apt at her PMD's office and she mentioned the pain and was told to come to the ED. Denies associated palpitations, dsypnea, n/v, diaphoresis, worsening with ambulation or activity at home. PMD: [facility] PMHx: HTN, TIA, COPD, asthma, anxiety SurgHx: gastric bypass, cholesectomy, tonsilectomy, hernia repair FHx: HTN SHx: denies ETOH, smoking and illicit drug use NKDA Present on Admission - Present on Admission Any Indicators Present on Admission: No Review of Systems - Constitutional Constitutional: absent: Chills, Fever - Cardiovascular Cardiovascular: Chest Pain. absent: Chest Pain with Activity, Dyspnea, Palpitations, Radiating Pain - Respiratory Respiratory: absent: Cough, Dyspnea Additional comments: baseline COPD dyspnea per pt - Gastrointestinal Gastrointestinal: absent: Abdominal Pain - Neurological Neurological: Dizziness. absent: Numbness, Weakness Additional comments: no diaphoresis Past Patient History - Tetanus Immunizations Tetanus Immunization: Unknown - Past Medical History & Family History Past Medical History?: Yes - Past Social History Smoking Status: Former Smoker Alcohol: None Drugs: Denies - CARDIAC Hx Cardiac Disorders: Yes Hx Hypertension: Yes - PULMONARY Hx Chronic Obstructive Pulmonary Disease (COPD): Yes - NEUROLOGICAL Hx Neurological Disorder: No - HEENT Hx HEENT Problems: No - RENAL Hx Chronic Kidney Disease: No - ENDOCRINE/METABOLIC Hx Endocrine Disorders: Yes - HEMATOLOGICAL/ONCOLOGICAL Hx Blood Disorders: No - INTEGUMENTARY Hx Dermatological Problems: No - MUSCULOSKELETAL/RHEUMATOLOGICAL Hx Falls: Yes - GASTROINTESTINAL Hx Gastrointestinal Disorders: No - GENITOURINARY/GYNECOLOGICAL Hx Genitourinary Disorders: No - PSYCHIATRIC Hx Anxiety: Yes Hx Depression: Yes Hx Substance Use: No - SURGICAL HISTORY Hx Cholecystectomy: Yes - ANESTHESIA Hx Anesthesia Reactions: No Hx Malignant Hyperthermia: No Meds Allergies/Adverse Reactions: Allergies Allergy/AdvReac Type Severity Reaction Status Date / Time No Known Allergies Allergy Verified 07/14/18 06:00 Physical Exam - Constitutional Appears: No Acute Distress - Head Exam Head Exam: NORMAL INSPECTION - Eye Exam Eye Exam: EOMI, Normal appearance - ENT Exam ENT Exam: Mucous Membranes Moist - Respiratory Exam Respiratory Exam: Clear to Auscultation Bilateral, Prolonged Expiratory Phase, NORMAL BREATHING PATTERN. absent: Wheezes - Cardiovascular Exam Cardiovascular Exam: REGULAR RHYTHM, +S1, +S2 Additional comments: parasternal tenderness on palpation - GI/Abdominal Exam GI & Abdominal Exam: Normal Bowel Sounds, Soft. absent: Tenderness Additional comments: old surgery scars noted - Extremities Exam Extremities exam: Positive for: normal inspection. Negative for: calf tenderne ss, pedal edema - Back Exam Back exam: NORMAL INSPECTION - Neurological Exam Neurological exam: Alert, Oriented x3 - Psychiatric Exam Psychiatric exam: Normal Mood Results - Vital Signs Recent Vital Signs: Last Vital Signs Temp 98.2 F 08/08/18 21:35 Pulse 91 H 08/08/18 21:35 Resp 18 08/08/18 21:35 BP 120/80 08/08/18 21:35 Pulse Ox 99 08/08/18 21:35 - Labs Result Diagrams: 08/08/18 20:07 08/08/18 20:07 Labs: Laboratory Results - last 24 hr 08/08/18 08/08/18 08/08/18 20:07 20:07 20:07 WBC 8.5 RBC 4.11 Hgb 13.2 Hct 38.4 MCV 93.5 MCH 32.0 H MCHC 34.2 RDW 13.8 Plt Count 276 MPV 8.3 Neut % (Auto) 54.5 Lymph % (Auto) 34.8 [place] % (Auto) 8.0 Eos % (Auto) 2.2 Baso % (Auto) 0.5 Neut # (Auto) 4.6 Lymph # (Auto) 3.0 [place] # (Auto) 0.7 Eos # (Auto) 0.2 Baso # (Auto) 0.0 D-Dimer, Quantitative 226 Sodium 140 Potassium 3.5 L Chloride 102 Carbon Dioxide 29 Anion Gap 13 BUN 16 Creatinine 0.8 Est GFR ( Amer) > 60 Est GFR (Non-Af Amer) > 60 Random Glucose 103 Calcium 9.4 Troponin I < 0.0120 - EKG Data EKG Interpreted by: Myself EKG shows normal: Sinus rhythm Rate: Normal (EKG with no acute ST or T wave changes, rate of 61 bpm) Assessment & Plan - Assessment and Plan (Free Text) Assessment: Assessment/Plan: 62 YO Female with PMHx of HTN, TIA, COPD, asthma, anxiety is admitted for chest pain, r/o ACS. All blood work, imaging and chart reviewed with previous admission. Chest pain -unlikely to be ACS given symptoms -consider costochondritis, anxiety or other etiology -EKG with no acute ST or T wave changes -trop neg x 1 -s/p nitro and asa -Echo: normal LV function, EF 55-60% (06/2018) -trops ordered -ekg in AM -start statin asa po daily HTN -chronic, controlled -c/w home meds COPD/Asthma -chronic -c/w home meds Anxiety -c/w home meds DVT proxl -Lovenox SC
[2018-08-08] MEDS ORDERED: Albuterol HFA 90 mcg/actuation (8 g) IH PRN (22:01)
[2018-08-08] MEDS ORDERED: Potassium Chloride 20 mEq ER Tab PO ONE ×2 (22:04→22:14)
[2018-08-08] MEDS: DOXEPIN HCL 100 MG PO SCH ×2 (23:21→23:23)
[2018-08-09 08:32] VITALS: BP 110/75; PULSE 68
[2018-08-09] MEDS ORDERED: Enoxaparin 40 mg Syringe SC SCH (09:00)
[2018-08-09] MEDS ORDERED: FLUTICASONE FUROATE 100 MCG IH SCH (09:00)
[2018-08-09 09:01] VITALS: RESP 18; TEMP 98.3; O2SAT 98
[2018-08-09 09:30] LABS: BLOOD UREA NITROGEN 13 mg/dl (7-17); CALCIUM 8.8 mg/dL (8.4-10.2); GFR NON-AFRICAN AMERICAN > 60
--- NOTE | 2018-08-09 10:29 | CP.PCM.DIS ---
<Doni Cross - Last Filed: 08/09/18 10:29> Provider - Provider Date of Admission: 08/08/18 21:23 Attending physician: Merry Hall MD Consults: 08/09/18 10:00 Nursing Referral for Palliative Care Routine Comment: Consulting Provider: Abbie Hall Physician Instructions: Reason For Exam: as per admission Time Spent in preparation of Discharge (in minutes): 35 Diagnosis - Discharge Diagnosis (1) Atypical chest pain Status: Acute Hospital Course - Lab Results Lab Results: Most Recent Lab Values WBC 8.5 K/uL (4.8-10.8) 08/08/18 20:07 RBC 4.11 Mil/uL (3.80-5.20) 08/08/18 20:07 Hgb 13.2 g/dL (12.0-16.0) 08/08/18 20:07 Hct 38.4 % (34.0-47.0) 08/08/18 20:07 MCV 93.5 fl (81.0-99.0) 08/08/18 20:07 MCH 32.0 pg (27.0-31.0) H 08/08/18 20:07 MCHC 34.2 g/dL (33.0-37.0) 08/08/18 20:07 RDW 13.8 % (11.5-14.5) 08/08/18 20:07 Plt Count 276 K/uL (130-400) 08/08/18 20:07 MPV 8.3 fl (7.2-11.7) 08/08/18 20:07 Neut % (Auto) 54.5 % (50.0-75.0) 08/08/18 20:07 Lymph % (Auto) 34.8 % (20.0-40.0) 08/08/18 20:07 [place] % (Auto) 8.0 % (0.0-10.0) 08/08/18 20:07 Eos % (Auto) 2.2 % (0.0-4.0) 08/08/18 20:07 Baso % (Auto) 0.5 % (0.0-2.0) 08/08/18 20:07 Neut # (Auto) 4.6 K/uL (1.8-7.0) 05/22/19 20:07 Lymph # (Auto) 3.0 K/uL (1.0-4.3) 08/08/18 20:07 [place] # (Auto) 0.7 K/uL (0.0-0.8) 08/08/18 20:07 Eos # (Auto) 0.2 K/uL (0.0-0.7) 08/08/18 20:07 Baso # (Auto) 0.0 K/uL (0.0-0.2) 08/08/18 20:07 D-Dimer, Quantitative 226 ng/mlDDU (0-230) 08/08/18 20:07 Sodium 140 mmol/l (132-148) 08/09/18 08:45 Potassium 3.9 MMOL/L (3.6-5.0) 08/09/18 08:45 Chloride 102 mmol/L (98-107) 08/09/18 08:45 Carbon Dioxide 30 mmol/L (22-30) 08/09/18 08:45 Anion Gap 12 (10-20) 08/09/18 08:45 BUN 13 mg/dl (7-17) 08/09/18 08:45 Creatinine 0.8 mg/dl (0.7-1.2) 08/09/18 08:45 Est GFR ( Amer) > 60 08/09/18 08:45 Est GFR (Non-Af Amer) > 60 08/09/18 08:45 Random Glucose 207 mg/dL (65-105) H 08/09/18 08:45 Calcium 8.8 mg/dL (8.4-10.2) 08/09/18 08:45 Troponin I < 0.0120 ng/mL (0.00-0.120) 08/09/18 02:00 - Hospital Course Hospital Course: 62 YO Female with PMHx of HTN, TIA, COPD, asthma, anxiety is admitted for chest pain. ACS was ruled out, troponin negative x3 with normal EKG. After an uneventful hospital stay, pt was discharged in stable condition. Chest pain -unlikely to be ACS given symptoms -consider costochondritis, anxiety or other etiology -EKG with no acute ST or T wave changes -trop neg x 1 -s/p nitro and asa -Echo: normal LV function, EF 55-60% (06/2018) -trops ordered -ekg in AM -start statin asa po daily HTN -chronic, controlled -c/w home meds COPD/Asthma -chronic -c/w home meds Anxiety -c/w home meds DVT proxl -Lovenox SC Discharge Exam - Head Exam Head Exam: NORMAL INSPECTION - Eye Exam Eye Exam: EOMI Pupil Exam: PERRL - ENT Exam ENT Exam: Mucous Membranes Moist - Respiratory Exam Respiratory Exam: Chest Wall Tenderness, Clear to PA & Lateral, NORMAL BREATHING PATTERN, UNREMARKABLE. absent: Rales, Rhonchi, Wheezes - Cardiovascular Exam Cardiovascular Exam: RRR, +S1, +S2. absent: REGULAR RHYTHM, JVD, Systolic Mur[place] r - GI/Abdominal Exam GI & Abdominal Exam: Normal Bowel Sounds, Unremarkable. absent: Pulsatile Mass, Rebound, Rigid, Soft - Neurological Exam Neurological exam: Alert, CN II-XII Intact, Normal Gait, Oriented x3 - Psychiatric Exam Psychiatric exam: Normal Affect - Skin Skin Exam: Dry, Intact, Normal Color, Warm Discharge Plan - Discharge Medications Prescriptions: Aspirin [Adult Aspirin Regimen] 81 mg PO DAILY #1 tablet.dr - Follow Up Plan Condition: GOOD Disposition: HOME/ ROUTINE Instructions: Chest Pain (DC) Additional Instructions: follow up visit with Dr. [place] Armenta 10/04/18 2:00pm Referrals: [facility] [Outside] <Shweta Murcia Lorin - Last Filed: 08/09/18 12:29> Provider - Provider Date of Admission: 08/08/18 21:23 Attending physician: Merry Hall MD Consults: 08/09/18 10:00 Nursing Referral for Palliative Care Routine Comment: Consulting Provider: Abbie Hall Physician Instructions: Reason For Exam: as per admission Hospital Course - Lab Results Lab Results: Most Recent Lab Values WBC 8.5 K/uL (4.8-10.8) 08/08/18 20:07 RBC 4.11 Mil/uL (3.80-5.20) 08/08/18 20:07 Hgb 13.2 g/dL (12.0-16.0) 08/08/18 20:07 Hct 38.4 % (34.0-47.0) 08/08/18 20:07 MCV 93.5 fl (81.0-99.0) 08/08/18 20:07 MCH 32.0 pg (27.0-31.0) H 08/08/18 20:07 MCHC 34.2 g/dL (33.0-37.0) 08/08/18 20:07 RDW 13.8 % (11.5-14.5) 08/08/18 20:07 Plt Count 276 K/uL (130-400) 08/08/18 20:07 MPV 8.3 fl (7.2-11.7) 08/08/18 20:07 Neut % (Auto) 54.5 % (50.0-75.0) 08/08/18 20:07 Lymph % (Auto) 34.8 % (20.0-40.0) 08/08/18 20:07 [place] % (Auto) 8.0 % (0.0-10.0) 08/08/18 20:07 Eos % (Auto) 2.2 % (0.0-4.0) 08/08/18 20:07 Baso % (Auto) 0.5 % (0.0-2.0) 08/08/18 20:07 Neut # (Auto) 4.6 K/uL (1.8-7.0) 08/08/18 20:07 Lymph # (Auto) 3.0 K/uL (1.0-4.3) 08/08/18 20:07 [place] # (Auto) 0.7 K/uL (0.0-0.8) 08/08/18 20:07 Eos # (Auto) 0.2 K/uL (0.0-0.7) 08/08/18 20:07 Baso # (Auto) 0.0 K/uL (0.0-0.2) 08/08/18 20:07 D-Dimer, Quantitative 226 ng/mlDDU (0-230) 08/08/18 20:07 Sodium 140 mmol/l (132-148) 08/09/18 08:45 Potassium 3.9 MMOL/L (3.6-5.0) 08/09/18 08:45 Chloride 102 mmol/L (98-107) 08/09/18 08:45 Carbon Dioxide 30 mmol/L (22-30) 08/09/18 08:45 Anion Gap 12 (10-20) 08/09/18 08:45 BUN 13 mg/dl (7-17) 08/09/18 08:45 Creatinine 0.8 mg/dl (0.7-1.2) 08/09/18 08:45 Est GFR ( Amer) > 60 08/09/18 08:45 Est GFR (Non-Af Amer) > 60 08/09/18 08:45 Random Glucose 207 mg/dL (65-105) H 08/09/18 08:45 Calcium 8.8 mg/dL (8.4-10.2) 08/09/18 08:45 Troponin I < 0.0120 ng/mL (0.00-0.120) 08/09/18 02:00 Attending/Attestation - Attestation I have personally seen and examined this patient.: Yes I have fully participated in the care of the patient.: Yes I have reviewed all pertinent clinical information, including history, physical exam and plan: Yes Notes (Text): Atypical Chest Pain, ACS ruled out , CP prob Costochondritis ( reproducible) HTN - cont ASA and Statin, cont BB and ARB - cont home meds - ff up [facility] for further outpt cardiac work up 08/09/18 12:29
--- NOTE | 2018-08-09 14:00 | RAD ---
Date of service: 08/08/2018 HISTORY: Chest pain COMPARISON: Comparison made with prior chest radiograph 07/14/2018 TECHNIQUE: 1 view obtained. FINDINGS: LUNGS: No active pulmonary disease. PLEURA: No significant pleural effusion identified, no pneumothorax apparent. CARDIOVASCULAR: Aortic atherosclerotic calcification present. Normal cardiac size. No pulmonary vascular congestion. OSSEOUS STRUCTURES: No significant abnormalities. VISUALIZED UPPER ABDOMEN: Normal. OTHER FINDINGS: None. IMPRESSION: No active disease.
--- NOTE | 2018-08-09 17:31 | CARD ---
APPROVED REPORT Date of service: 08/09/2018 EKG Measurement Heart [id number] <Conclusion> Normal sinus rhythm Nonspecific ST and T wave abnormality Abnormal ECG
--- NOTE | 2018-08-09 17:33 | CARD ---
APPROVED REPORT Date of service: 08/08/2018 EKG Measurement Heart [id number] <Conclusion> Normal sinus rhythm Normal ECG
== END 2018-08-09 11:00 | disposition home or self-care (01) ==
LOC: H.ER 18:45 → H.ERHOLD 21:23 → H.TEL 22:23
PROVIDERS: ADMIT Internal Medicine; ATTEND Internal Medicine
DX: R07.89 Other chest pain (principal); Z86.73 Personal history of transient ischemic attack (TIA), and cerebral infarction without residual deficits; Z98.84 Bariatric surgery status; F41.9 Anxiety disorder, unspecified; F32.9 Major depressive disorder, single episode, unspecified; J44.9 Chronic obstructive pulmonary disease, unspecified; I10 Essential (primary) hypertension; Z87.891 Personal history of nicotine dependence
CPT/HCPCS: 36415; 71045; 80048; 84484; 85025; 85378; 93005; 99282; G0378; J1650